=== PATIENT | male | born 1940 | race Caucasian/White ===

== ENCOUNTER → 2016-04-23 12:36 | Outpatient (CLI) | payer MEDICARE, BC ==
[2014-06-25 15:34] VITALS: BMI 21.2
[~2016-04-23 12:36] MED LIST: BETAPACE 120 M120 MG PO; BISACODYL5 MG PO; CLARITIN 10 MG10 MG PO; CYCLOBENZAPRINE10 MG PO; ELIQUIS2.5 MG PO; FOLATE0.4 MG PO; HYDROCODONE-APA1 TAB PO; KLOR-CON 1010 MEQ PO; LASIX20 MG PO; LODOSYN25 MG PO; PERCOCET 10/3251 TA1 PO; PRAVACHOL40 MG PO; PREDNISONE5 MG PO; SINEMET 25-1001 EACH PO; STERAPRED DS 1210 MG PO; SYNTHROID25 MCG PO; THEREMS-M1 TAB PO; VITAMIN B-1000 MCG/M IM; VITAMIN B-121000 MCG IM; VITAMIN D31000 UNIT PO; ZOFRAN4 MG PO; ZOLOFT100 MG PO
== END | disposition home or self-care (01) ==
LOC: D.RAD 12:36
DX: R13.10 Dysphagia, unspecified (principal)

== ENCOUNTER → 2017-09-27 21:22 | Outpatient (CLI) | payer MEDICARE, BC ==
[2014-06-25 15:34] VITALS: BMI 21.2
[2017-09-27 21:37] LABS: BASOPHILS 0.4 % (0-2); HEMATOCRIT 30.8 % (42.0-54.0); HEMOGLOBIN 9.8 g/dL (13.5-17.5); IMMATURE GRANULOCYTES 0.1 % (0-5); LYMPHOCYTES 14.3 % (15-50); MCH 27.7 pg (26.0-34.0); MCHC 31.8 g/dL (31.0-37.0); MEAN PLATELET VOLUME 10.6 fL (7.4-10.4); MONOCYTES 6.4 % (2-11); NEUTROPHILS 77.8 % (40-80); RBC 3.54 10x6/uL (4.20-6.10); RDW 15.4 % (11.5-14.5); WBC 8.3 10x3/uL (4.8-10.8)
[2017-09-27 21:38] LABS: PLATELET COUNT 270 10x3/uL (130-400)
[2017-09-27 22:38] LABS: ERYTHROCYTE SEDIMENTATION RATE 4 mm/hr (0-20)
== END | disposition home or self-care (01) ==
LOC: D.LABREF 21:22
PROVIDERS: Orthopaedic Surgery
DX: M25.562 Pain in left knee (principal)

== ENCOUNTER → 2017-10-01 09:48 | Outpatient (CLI) | payer MEDICARE, BC ==
[2014-06-25 15:34] VITALS: BMI 21.2
== END | disposition home or self-care (01) ==
LOC: D.NM 09:48
DX: Z96.652 Presence of left artificial knee joint (principal)

== ENCOUNTER → 2017-12-01 12:35 | Outpatient (CLI) | payer MEDICARE, BC ==
[2014-06-25 15:34] VITALS: BMI 21.2
== END | disposition home or self-care (01) ==
LOC: D.US 12:35
DX: I12.9 Hypertensive chronic kidney disease with stage 1 through stage 4 chronic kidney disease, or unspecified chronic kidney disease (principal); N18.3 Chronic kidney disease, stage 3 (moderate); N25.81 Secondary hyperparathyroidism of renal origin; D64.9 Anemia, unspecified; Z68.1 Body mass index [BMI] 19.9 or less, adult

== ENCOUNTER 2018-02-15 14:07 | Inpatient (IN) | payer MEDICARE, BC ==
[~2018-02-15] VITALS: Ht 180.3 cm; Wt 80.6 kg
--- NOTE | ~2018-02-15 | MORECARE ---
CASE MANAGEMENT DISCHARGE SUMMARY PATIENT: YA PAULINO UNIT: [id number] ADM DATE: 02/15/18 AGE: 77 : 38 SEX: M ROOM/BED: D.2132 AUTHOR: RACHEL,DOC PHYSICIAN: REFERRING PHYSICIAN: ALBA ROBISON MD DATE OF SERVICE: 02/23/18 Discharge Plan Patient Name: YA PAULINO Facility: [facility]:[place] : 1940 Planned Disposition: Intermediate Facility Anticipated Discharge Date: 02/23/18 Discharge Date: Expected LOS: 8 Initial Reviewer: [id number] Initial Review Date: 02/18/2018 Generated: 02/23/18 2:49 pm Comments DCP- Discharge Planning Updated by [id number]: Zak Gaming on 02/22/18 4:[address] Patient Name: YA PAULINO Encounter No: [id number] : 1940 Primary Insurance: MEDICARE A & B Anticipated DC Date: 02-23-2018 Planned Disposition: Intermediate Facility External Planned Provider: :[facility], MEDICARE REHAB BED DCP follow-up note: CM SPOKE TO [facility] OF INPATIENT REHAB ON 02-21-18, THEY ARE NOT ACCEPTING PT HE IS TOO LOW FUNCTIONING. CM MET WITH PT IN ROOM TO DISCUSS DISCHARGE PLANNING AND NEEDS. PT STATES HE KNOWS HE NEEDS SOMETHING AND WOULD LIKE FOR HIS TO DECIDE ON REHAB. IMPORTANT MESSAGE FROM MEDICARE PROVIDED AND EXPLAINED. AFTER LUNCH, SANJEEV OBSERVED A PERSON IN THE ROOM WITH PT, CM SPOKE PT WHO INFORMED CM THAT MILLY IS HIS CAREGIVER. CM SPOKE TO ALTA WHO REPORT PT NEEDS REHAB BEFORE COMING HOME AND SHE IS PRAYING THAT PT'S SPOUSE WILL NOT BRING PT HOME IN THIS CONDITION AND WILL CONSENT TO REHAB AT [facility], WHICH IS CLOSE TO PT'S HOME. CM LEFT CHOICE LETTER FOR LONGTERM FACILITY IN ROOM WITH PT AFTER EXPLAINING IT TO PT AND CAREGIVER. CM LEFT CM CONTACT INFORMATION. CAREGIVER REPORTS HER NAME IS MILLY AND THAT PT'S IS NOT AVAILABLE TODAY SHE IS HAVING COSMETIC SURGERY AND WILL MOST LIKELY CONTACT CM TOMORROW, 02-23-18. CM WAITING PT'S SPOUSE TO CONTACT CM TO DISCUSS LONGTERM REHAB AND PROVIDE CHOICE OF FACILITY IF SHE WANTS REHAB FOR PT. Zak Gaming, CASE MANAGEMENT DCP- Discharge Planning Updated by [id number]: Zak Gaming on 02/18/18 4:[address] Patient Name: YA PAULINO Admission Status: ER Accout number: [id number] Admission Date: 02-15-2018 : 1940 Admission Diagnosis:LOBAR PNEUMONIA, UNSPECIFIED ORGANISM Attending: ALBA ROBISON Current LOS: 3 Anticipated DC Date: 02-19-2018 Planned Disposition: Inpatient Rehab Primary Insurance: MEDICARE A & B PLANNED EXTERNAL PROVIDER: [facility] IN[facility] RE[facility] Discharge Planning Comments: CM RECEIVED ORDER FOR INPATIENT REHAB PRESCREENING. CM MET WITH PT AND SPOUSE IN ROOM TO DISCUSS DISCHARGE PLANNING AND NEEDS. YA PAULINO provided verbal consent to discuss current and ongoing needs with/in the presence of: SPOUSE, DENYS. PT REPORTS LIVING AT HOME DEPENDENT ON SPOUSE FOR ASSISTANCE IN MEDICATION AND BATH. PT HAS CANE, WALKER AND WHEELCHAIR WITH NO MEDICAL EQUIPMENT PROVIDER PREFERENCE. PT HAS NO OUTSIDE SERVICES ASSISTING IN THE HOME BUT HAS USED [employer] AT HOME IN THE PAST. CM DISCUSSED AVAILABILITY OF HOME HEALTH, REHAB SERVICES AND MEDICAL EQUIPMENT. PT WOULD LIKE REHAB AT [facility], SPOUSE TO TRANSPORT HOME AT DISCHARGE. IMPORTANT MESSAGE FROM MEDICARE PROVIDED AND EXPLAINED. CM WAITING COMPLETION OF INPATIENT REHAB PRESCREENING AND ADMISSION DETERMINATION FROM [facility]. Maintenance Inspector: Zak Gaming DCPIA - Discharge Planning Initial Assessment Updated by [id number]: Zak Gaming on 02/18/18 5:25 pm * Is the patient Alert and Oriented? Yes * How many steps to enter\exit or inside your home? NONE * PCP DR. ROBISON * Pharmacy [facility]. * Preadmission Environment Home with Family * ADLs Partial Dependent * Partial ADLs (Assistance needed) Bathing Medication Management * Equipment Cane Walker Wheelchair * Other Equipment NO MEDICAL EQUIPMENT PROVIDER PREFERENCE * List name and contact numbers for known caregivers / representatives who currently or will assist patient after discharge: DENYS PAULINO, SPOUSE, * Verbal permission to speak to the caregivers and representatives has been obtained from the patient. Yes * Community resources currently utilized None * Please name any agencies selected above. NONE * Additional services required to return to the preadmission environment? Yes * Can the patient safely return to the preadmission environment? Yes * Has this patient been hospitalized within the prior 30 days at any hospital? No External Providers External Provider: [facility] Next Contact Date: 02/23/2018 Service Request Date: Service Type: Resolution: Reviewer: Comments: Coverage Notice Reviewer: [id number] Candi Gaming Notice Issued Date-Time: 02/18/2018 12:10 Notice Type: IM Discharge Notice Notice Delivered To: Family Member Relationship to Patient: Spouse Senior Network Security Architect Name: DENYS PAULINO Delivery Method: HAND - Hand Delivered Berenice Days: Prior Verbal Notification: Recipient Understood Notice: Yes Recipient Signature: Yes Med Rec Note Co-signed by Attending: Coverage Notice Comment: Reviewer: [id number] Candi Gaming Notice Issued Date-Time: 02/22/2018 9:10 Notice Type: IM Discharge Notice Notice Delivered To: Patient Relationship to Patient: Senior Network Security Architect Name: Delivery Method: HAND - Hand Delivered Berenice Days: Prior Verbal Notification: Recipient Understood Notice: Yes Recipient Signature: Yes Med Rec Note Co-signed by Attending: Coverage Notice Comment: Last DP export: 02/23/18 12:14 Patient Name: YA PAULINO Page 33140 at 1349 All edits/amendments must be made on the electronic document DICTATION DATE: 02/23/18 1349 MEDICAL ADMINISTRATIVE: SAUMYA 02/23/18 1349 RPT#: [id number] DC DATE: STATUS: ADM IN [facility] [address] [place] [address] END OF REPORT
--- NOTE | ~2018-02-15 | MORECARE ---
CASE MANAGEMENT DISCHARGE SUMMARY PATIENT: YA PAULINO UNIT: [id number] ADM DATE: 02/15/18 AGE: 77 : 38 SEX: M ROOM/BED: D.2132 AUTHOR: JESSE RAMOS PHYSICIAN: REFERRING PHYSICIAN: ALBA ROBISON MD DATE OF SERVICE: 02/18/18 Discharge Plan Patient Name: YA PAULINO [facility] [facility] 1940 Planned Disposition: Inpatient Rehab Anticipated Discharge Date: 02/19/18 Discharge Date: Expected LOS: 4 Initial Reviewer: [email or web address] Initial Review Date: 02/18/2018 Generated: 02/18/18 6:35 pm Comments DCP- Discharge Planning Updated by AMY: Zak Gaming on 02/18/18 4:[address] Patient Name: YA PAULINO Admission Status: ER Accout number: [id number] Admission Date: 02-15-2018 : 1940 Admission Diagnosis:LOBAR PNEUMONIA, UNSPECIFIED ORGANISM Attending: ALBA ROBISON Current LOS: 3 Anticipated DC Date: 02-19-2018 Planned Disposition: Inpatient Rehab Primary Insurance: MEDICARE A & B PLANNED EXTERNAL PROVIDER: [facility] INPATIENT REH[facility] Discharge Planning Comments: CM RECEIVED ORDER FOR INPATIENT REHAB PRESCREENING. CM MET WITH PT AND SPOUSE IN ROOM TO DISCUSS DISCHARGE PLANNING AND NEEDS. YA PAULINO provided verbal consent to discuss current and ongoing needs with/in the presence of: SPOUSE, DENYS. PT REPORTS LIVING AT HOME DEPENDENT ON SPOUSE FOR ASSISTANCE IN MEDICATION AND BATH. PT HAS CANE, WALKER AND WHEELCHAIR WITH NO MEDICAL EQUIPMENT PROVIDER PREFERENCE. PT HAS NO OUTSIDE SERVICES ASSISTING IN THE HOME BUT HAS USED [facility] AT HOME IN THE PAST. CM DISCUSSED AVAILABILITY OF HOME HEALTH, REHAB SERVICES AND MEDICAL EQUIPMENT. PT WOULD LIKE REHAB AT [facility], SPOUSE TO TRANSPORT HOME AT DISCHARGE. IMPORTANT MESSAGE FROM MEDICARE PROVIDED AND EXPLAINED. CM WAITING COMPLETION OF INPATIENT REHAB PRESCREENING AND ADMISSION DETERMINATION FROM [facility] IN[facility]. Lithographic Photographer Apprentice: Zak Gaming DCPIA - Discharge Planning Initial Assessment Updated by [id number]: Zak Gaming on 02/18/18 5:25 pm * Is the patient Alert and Oriented? Yes * How many steps to enter\exit or inside your home? NONE * PCP DR. ROBISON * [facility]. * Preadmission Environment Home with Family * ADLs Partial Dependent * Partial ADLs (Assistance needed) Bathing Medication Management * Equipment Cane Walker Wheelchair * Other Equipment NO MEDICAL EQUIPMENT PROVIDER PREFERENCE * List name and contact numbers for known caregivers / representatives who currently or will assist patient after discharge: DENYS PAULINO, SPOUSE, * Verbal permission to speak to the caregivers and representatives has been obtained from the patient. Yes * Community resources currently utilized None * Please name any agencies selected above. NONE * Additional services required to return to the preadmission environment? Yes * Can the patient safely return to the preadmission environment? Yes * Has this patient been hospitalized within the prior 30 days at any hospital? No Coverage Notice Reviewer: [id number] Candi Gaming Notice Issued Date-Time: 02/18/2018 12:10 Notice Type: IM Discharge Notice Notice Delivered To: Family Member Relationship to Patient: Spouse Guide Domestic Tour Name: DENYS PAULINO Delivery Method: HAND - Hand Delivered Berenice Days: Prior Verbal Notification: Recipient Understood Notice: Yes Recipient Signature: Yes Med Rec Note Co-signed by Attending: Coverage Notice Comment: Patient Name: YA PAULINO Page 97778 at 1735 All edits/amendments must be made on the electronic document DICTATION DATE: 02/18/181733 PERIPHERAL EQUIPMENT OPERATOR: SAUMYA 02/18/181733 RPT#: [id number] [place] DATE: STATUS: ADM IN [facility] [address] [place] [address] END OF REPORT
--- NOTE | ~2018-02-15 | MORECARE ---
CASE MANAGEMENT DISCHARGE SUMMARY PATIENT: YA PAULINO UNIT: [id number] ADM DATE: 02/15/18 AGE: 77 : 38 SEX: M ROOM/BED: D.2132 AUTHOR: RACHELDOC PHYSICIAN: REFERRING PHYSICIAN: ALBA ROBISON MD DATE OF SERVICE: 02/24/18 Discharge Plan Patient Name: YA PAULINO Facility: [facility]:[place] : 1940 Planned Disposition: Hospice Medical Facility Anticipated Discharge Date: 02/24/18 Discharge Date: Expected LOS: 9 Initial Reviewer: [id number] Initial Review Date: 02/18/2018 Generated: 02/24/18 11:09 am Comments DCP- Discharge Planning Updated by [id number]: Zak Gaming on 02/24/18 9:[address] Patient Name: YA PAULINO Encounter No: [id number] : 1940 Primary Insurance: MEDICARE A & B Anticipated DC Date: 02-23-2018 Planned Disposition: Hospice Medical Facility External Planned Provider: [facility] DCP follow-up note: CM RECEIVED CALL FROM [facility], , WHO INFORMED CM THAT THEY DID NOT EVALUATE PT LAST NIGHT. CM CLARIFIED THAT PT WILL NEED INPATIENT HOSPICE. CM VERFIED THAT PT'S SON IS IN THE ROOM AND PT'S SPOUSE IS NOT YET HERE BUT CAN BE AND ADVISED TANIA TO CONTACT PT'S SPOUSE VIA PHONE IF NEEDED. CM NOTIFIED TANIA OF PT'S CONTINUED DECLINE. CM FAXED HOSPICE REFERRAL UPDATE TO [facility] AT [phone]. CM WAITING EVALUATION COMPLETION AND ADMISSION DETERMINATION FROM [facility]. Zak Gaming, CASE MANAGEMENT Appended by Zak Gaming on 02/24/2018 10:05 HEAD BOYS TENNIS COACH: BEDSIDE NURSE INFORMED CM THAT PT HAD . CM CALLED AND NOTIFIED [facility], . JOANN LEBRON DCP- Discharge Planning Updated by [id number]: Zak Gaming on 02/23/18 3:[address] Patient Name: YA PAULINO Encounter No: [id number] : 1940 Primary Insurance: MEDICARE A & B Anticipated DC Date: 02-23-2018 Planned Disposition: Hospice Medical Facility External Planned Provider: [facility] DCP follow-up note: CM SPOKE TO BEDSIDE NURSE WHO INFORMED CM OF PT'S DECLINE IN STATUS, DR. WALLACE HAS ORDERED CONSULT FOR HOSPICE, BEDSIDE NURSE HAS DISCUSSED WITH PT'S SPOUSE WHO IS IN AGREEMENT WITH REFERRAL TO [facility]. CM CALLED [facility], , SPOKE TO SUSAN AND PROVIDED REFERRAL FOR HOSPICE EVALUATON. CM FAXED HOSPICE REFERRAL TO [facility] AT [phone]. CM WAITING EVALUATION COMPLETION AND ADMISSION DETERMINATION FROM [facility]. Zak Gaming, CASE MANAGEMENT DCP- Discharge Planning Updated by [id number]: Zak Gaming on 02/23/18 12:[address] Patient Name: YA PAULINO Encounter No: [id number] : 1940 Primary Insurance: MEDICARE A & B Anticipated DC Date: 02-23-2018 Planned Disposition: Detention Facility External Planned Provider: [facility], MEDICARE REHAB BED DCP follow-up note: CM RECEIVED CALL FROM DENYS PAULINO WHO REPORTS BEING UNALBE TO COME TO HOSPITAL DUE TO HAVING A PROCEDURE HERSELF YESTERDAY. SHE HAD RECEIVED MESSAGE FROM MILLY, PT'S CAREGIVER, REGARDING REHAB. OPTIONS DISCUSSED. SPOUSE REPORTS THAT IF PT IS ABLE TO GO REHAB, SHE WOULD LIKE REFERRAL SENT TO [facility]. CHOICE COMPLETED. SPOUSE STATES THAT IF PT IS NOT ABLE AND THE DOCTOR FEELS THEY CAN DO NOTHING FURTHER, SHE WOULD WANT [facility] AND IF PT DID NOT QUALIFY FOR INPATIENT HOSPICE, SHE WOULD LIKE PT PLACED AT [facility] WITH [facility]. SPOUSE ASKED IF THE DOCTORS HAVE MENTIONED HOSPICE CARE. CM REVIEWED NOTES AND ORDERS, CM ADVISED THEY HAVE NOT BUT ADVISED PT IS DOING WORSE TODAY. SPOUSE ASKED TO BE KEPT UPDATED ON PT'S CONDITION AND ASKED THAT CM CONTACT [facility] FOR POSSIBLE REHAB IN EVENT PT DOES GET BETTER. CM NOTIFIED [facility] OF REFERRAL AT [phone]; [facility] FAXED REFERRAL TO [facility] VIA [facility] AT [phone]. [facility] ARRIVED, EVALUATED PT AND INFORMED CM THAT PT IS ON 15 LITERS OF OXYGEN AND WOULD HAVE TO BE DOING "MUCH BETTER THAN THAT" FOR REHAB. [facility] TO FOLLOW FOR POSSIBLE IMPROVEMENT AND REHAB NEEDS, CM TO KEEP INFORMED OF STATUS. SPOUSE, DENYS PAULINO, ASKED TO BE UPDATED ON PT'S CONDITION, HER PHONE IS [phone]. JOANN Lebron DCP- Discharge Planning Updated by [id number]: Zak Gaming on 02/22/18 4:[address] Patient Name: YA PAULINO Encounter No: [id number] : 1940 Primary Insurance: MEDICARE A & B Anticipated DC Date: 02-23-2018 Planned Disposition: Detention Facility External Planned Provider: :[facility], MEDICARE REHAB BED DCP follow-up note: CM SPOKE TO [facility] OF INPATIENT REHAB ON 02-21-18, THEY ARE NOT ACCEPTING PT HE IS TOO LOW FUNCTIONING. CM MET WITH PT IN ROOM TO DISCUSS DISCHARGE PLANNING AND NEEDS. PT STATES HE KNOWS HE NEEDS SOMETHING AND WOULD LIKE FOR HIS TO DECIDE ON REHAB. IMPORTANT MESSAGE FROM MEDICARE PROVIDED AND EXPLAINED. AFTER LUNCH, CM OBSERVED A PERSON IN THE ROOM WITH PT, CM SPOKE PT WHO INFORMED CM THAT MILLY IS HIS CAREGIVER. CM SPOKE TO ALTA WHO REPORT PT NEEDS REHAB BEFORE COMING HOME AND SHE IS PRAYING THAT PT'S SPOUSE WILL NOT BRING PT HOME IN THIS CONDITION AND WILL CONSENT TO REHAB AT [facility], WHICH IS CLOSE TO PT'S HOME. CM LEFT CHOICE LETTER FOR [facility] IN ROOM WITH PT AFTER EXPLAINING IT TO PT AND CAREGIVER. CM LEFT CM CONTACT INFORMATION. CAREGIVER REPORTS HER NAME IS MILLY AND THAT PT'S IS NOT AVAILABLE TODAY SHE IS HAVING COSMETIC SURGERY AND WILL MOST LIKELY CONTACT CM TOMORROW, 02-23-18. CM WAITING PT'S SPOUSE TO CONTACT CM TO DISCUSS [facility] AND PROVIDE CHOICE OF FACILITY IF SHE WANTS REHAB FOR PT. JOANN Lebron DCP- Discharge Planning Updated by [id number]: Zak Gaming on 02/18/18 4:[address] Patient Name: YA PAULINO Admission Status: ER Accout number: [id number] Admission Date: 02-15-2018 : 1940 Admission Diagnosis:LOBAR PNEUMONIA, UNSPECIFIED ORGANISM Attending: ALBA ROBISON Current LOS: 3 Anticipated DC Date: 02-19-2018 Planned Disposition: Inpatient Rehab Primary Insurance: MEDICARE A & B PLANNED EXTERNAL PROVIDER: [facility] Discharge Planning Comments: CM RECEIVED ORDER FOR INPATIENT REHAB PRESCREENING. CM MET WITH PT AND SPOUSE IN ROOM TO DISCUSS DISCHARGE PLANNING AND NEEDS. YA PAULINO provided verbal consent to discuss current and ongoing needs with/in the presence of: SPOUSE, DENYS. PT REPORTS LIVING AT HOME DEPENDENT ON SPOUSE FOR ASSISTANCE IN MEDICATION AND BATH. PT HAS CANE, WALKER AND WHEELCHAIR WITH NO MEDICAL EQUIPMENT PROVIDER PREFERENCE. PT HAS NO OUTSIDE SERVICES ASSISTING IN THE HOME BUT HAS USED [facility] AT HOME IN THE PAST. CM DISCUSSED AVAILABILITY OF HOME HEALTH, REHAB SERVICES AND MEDICAL EQUIPMENT. PT WOULD LIKE REHAB AT [place], SPOUSE TO TRANSPORT HOME AT DISCHARGE. IMPORTANT MESSAGE FROM MEDICARE PROVIDED AND EXPLAINED. CM WAITING COMPLETION OF INPATIENT REHAB PRESCREENING AND ADMISSION DETERMINATION FROM [facility]. Electronic Gluing Machine Operator: Zak Gaming DCPIA - Discharge Planning Initial Assessment Updated by [id number]: Zak Gaming on 02/18/18 5:25 pm * Is the patient Alert and Oriented? Yes * How many steps to enter\\exit or inside your home? NONE * PCP DR. ROBISON * Pharmacy [facility]. * Preadmission Environment Home with Family * ADLs Partial Dependent * Partial ADLs (Assistance needed) Bathing Medication Management * Equipment Cane Walker Wheelchair * Other Equipment NO MEDICAL EQUIPMENT PROVIDER PREFERENCE * List name and contact numbers for known caregivers / representatives who currently or will assist patient after discharge: DENYS PAULINO, SPOUSE, * Verbal permission to speak to the caregivers and representatives has been obtained from the patient. Yes * Community resources currently utilized None * Please name any agencies selected above. NONE * Additional services required to return to the preadmission environment? Yes * Can the patient safely return to the preadmission environment? Yes * Has this patient been hospitalized within the prior 30 days at any hospital? No Coverage Notice Reviewer: [id number] Candi Gaming Notice Issued Date-Time: 02/18/2018 12:10 Notice Type: IM Discharge Notice Notice Delivered To: Family Member Relationship to Patient: Spouse Enrichment Specialist Name: DENYS PAULINO Delivery Method: HAND - Hand Delivered Berenice Days: Prior Verbal Notification: Recipient Understood Notice: Yes Recipient Signature: Yes Med Rec Note Co-signed by Attending: Coverage Notice Comment: Reviewer: [id number] Gaming Notice Issued Date-Time: 02/22/2018 9:10 Notice Type: IM Discharge Notice Notice Delivered To: Patient Relationship to Patient: Enrichment Specialist Name: Delivery Method: HAND - Hand Delivered Berenice Days: Prior Verbal Notification: Recipient Understood Notice: Yes Recipient Signature: Yes Med Rec Note Co-signed by Attending: Coverage Notice Comment: Reviewer: [id number] Gaming Notice Issued Date-Time: 02/23/2018 9:20 Notice Type: Patient Choice Letter Notice Delivered To: Family Member Relationship to Patient: Spouse Enrichment Specialist Name: DENYS PAULINO Delivery Method: PHONE - Phone Berenice Days: Prior Verbal Notification: Recipient Understood Notice: Yes Recipient Signature: Med Rec Note Co-signed by Attending: Coverage Notice Comment: THE JENNI Riggins DP export: 02/24/18 7:47 Patient Name: YA PAULINO Page 30242 at 1009 All edits/amendments must be made on the electronic document DICTATION DATE: 02/24/18 1009 CHIEF DATA OFFICER: SAUMYA 02/24/18 1009 RPT#: [id number] DC DATE: STATUS: ADM IN [facility] [address] [place] [address] END OF REPORT
--- NOTE | ~2018-02-15 | CN ---
PATIENT NAME:YA KOCH MEDICAL RECORD: [id number] : [birth year] LOCATION:[facility].2132 ADMIT DATE: 02/15/18 ACCOUNT: [id number] CONSULTING PHYSICIAN: YOLANDA MCADAMS MD REFERRING PHYSICIAN: KEMAL BURRIS MD DATE OF CONSULTATION: 02/16/2018 CONSULT REQUESTING PHYSICIAN: Kemal Burris MD REASON FOR CONSULTATION: Right upper lobe pneumonia, COPD. HISTORY OF PRESENT ILLNESS: Mr. Koch is a 77-year-old gentleman who has a history of Parkinson disease, obstructive sleep apnea, noncompliant and COPD, home O2 dependent. The patient was brought into the hospital with shortness of breath. He has generalized weakness and fatigue and a bit more confused. He was also losing weight and he has inability to eat for the last 4-5 days. REVIEW OF SYSTEMS: As in history of present illness. PAST MEDICAL HISTORY: 1. End-stage Parkinson disease. 2. Hypothyroidism. 3. COPD. 4. Chronic hypoxic respiratory failure. 5. Obstructive sleep apnea. 6. Arthritis. PAST SURGICAL HISTORY: 1. Appendectomy. 2. Vasectomy. 3. Shoulder surgery. 4. Elbow surgery. 5. Testicular tumor, left. 6. Total ulnar nerve transplantation. 7. Lumber laminectomy. 8. Status post pacemaker placement. ALLERGIES: HE IS ALLERGIC TO DOXYCYCLINE, CIPRO, LEVOFLOXACIN, THERE IS A HUGE LIST ON THE [place]. MEDICATIONS: On the Mendeley is reviewed. Medication on Mendeley is reviewed. PERSONAL AND SOCIAL HISTORY: The patient is a nonsmoker, nondrinker. FAMILY HISTORY: Noncontributory. PHYSICAL EXAMINATION: GENERAL: Now, the patient is lying comfortably. He is not in acute distress. VITAL SIGNS: The blood pressure is 136/68, pulse is 72, respirations 20, temperature is 96.4, and SpO2 is 95% on room air. HEENT: Conjunctivae are pale. Sclerae not icteric. NECK: Supple, no JVD. CHEST: The chest excursion is minimal on both, crackle at the right apex. CONSULT REPORT [id number] YA KOCH HEART: Rhythm regular, normal sound, no murmur. ABDOMEN: Soft, bowel sounds present. No hepatosplenomegaly. RECTAL: Was done. CENTRAL NERVOUS SYSTEM: The patient is awake and alert. There are no obvious cranial nerve abnormality. There are increased muscular tone. Chest radiograph there is infiltrate in right upper lobe. There is 1.2 x 1 cm lesion abutting the meninges posterior to the right cerebellar hemisphere. OTHER LABORATORY DATA: CBC: WBC is 9.4, hemoglobin 13.1, hematocrit 39.7, the platelet count 254. IMPRESSION: 1. Pneumonia, right upper lobe. 2. Possible chronic aspiration. 3. End-stage Parkinson disease. 4. Acute myocardial infarction. 5. Obstructive sleep apnea. 6. Paroxysmal atrial fibrillation. 7. Chronic kidney disease. RECOMMENDATION: 1. I will start him on Zosyn to cover for aspiration pneumonia. 2. Encourage nutrition. 3. Swallowing evaluation is in progress. 4. Follow up labs and chest radiograph. 5. Cardiology and nephrology is consulted. Dr. Burris, thank you for involving me in the care of Mr. Koch. TRANSINT:[id number] Voice Confirmation ID: [id number] DOCUMENT ID: [id number] YOLANDA MCADAMS MD at 1339 CC: [id number] DICTATION DATE: 02/16/18 1446 LINUX SERVER ADMINISTRATOR: 02/16/18 2211 ADM IN [facility] [address] [place] [address]
--- NOTE | ~2018-02-15 | MORECARE ---
CASE MANAGEMENT DISCHARGE SUMMARY PATIENT: YA PAULINO UNIT: [id number] ADM DATE: 02/15/18 AGE: 77 : 38 SEX: M ROOM/BED: D.2132 AUTHOR: RACHEL,DOC PHYSICIAN: REFERRING PHYSICIAN: ALBA ROBISON MD DATE OF SERVICE: 02/23/18 Discharge Plan Patient Name: YA PAULINO Facility: [facility]:[place] : 1940 Planned Disposition: Hospice Medical Facility Anticipated Discharge Date: 02/23/18 Discharge Date: Expected LOS: 8 Initial Reviewer: [id number] Initial Review Date: 02/18/2018 Generated: 02/23/18 5:13 pm Comments DCP- Discharge Planning Updated by [email or web address]: Zak Gaming on 02/23/18 12:[address] Patient Name: YA PAULINO Encounter No: [id number] : 1940 Primary Insurance: MEDICARE A & B Anticipated DC Date: 02-23-2018 Planned Disposition: Prison Facility External Planned Provider: [facility], MEDICARE REHAB BED DCP follow-up note: CM RECEIVED CALL FROM DENYS PAULINO WHO REPORTS BEING UNALBE TO COME TO HOSPITAL DUE TO HAVING A PROCEDURE HERSELF YESTERDAY. SHE HAD RECEIVED MESSAGE FROM MILLY, PT'S CAREGIVER, REGARDING REHAB. OPTIONS DISCUSSED. SPOUSE REPORTS THAT IF PT IS ABLE TO GO REHAB, SHE WOULD LIKE REFERRAL SENT TO [facility]. CHOICE COMPLETED. SPOUSE STATES THAT IF PT IS NOT ABLE AND THE DOCTOR FEELS THEY CAN DO NOTHING FURTHER, SHE WOULD WANT [facility] AND IF PT DID NOT QUALIFY FOR INPATIENT HOSPICE, SHE WOULD LIKE PT PLACED AT [facility] WITH [facility]. SPOUSE ASKED IF THE DOCTORS HAVE MENTIONED HOSPICE CARE. CM REVIEWED NOTES AND ORDERS, CM ADVISED THEY HAVE NOT BUT ADVISED PT IS DOING WORSE TODAY. SPOUSE ASKED TO BE KEPT UPDATED ON PT'S CONDITION AND ASKED THAT CM CONTACT [facility] FOR POSSIBLE REHAB IN EVENT PT DOES GET BETTER. CM NOTIFIED [facility] OF REFERRAL AT [phone]; [facility] FAXED REFERRAL TO [facility] VIA [facility] AT [phone]. [facility] ARRIVED, EVALUATED PT AND INFORMED CM THAT PT IS ON 15 LITERS OF OXYGEN AND WOULD HAVE TO BE DOING "MUCH BETTER THAN THAT" FOR REHAB. [facility] TO FOLLOW FOR POSSIBLE IMPROVEMENT AND REHAB NEEDS, CM TO KEEP INFORMED OF STATUS. SPOUSE, DENYS PAULINO, ASKED TO BE UPDATED ON PT'S CONDITION, HER PHONE IS [phone]. JOANN Leal MANAGEMENT DCP- Discharge Planning Updated by [id number]: Zak Gaming on 02/22/18 4:[address] Patient Name: YA PAULINO Encounter No: [id number] : 1940 Primary Insurance: MEDICARE A & B Anticipated DC Date: 02-23-2018 Planned Disposition: Prison Facility External Planned Provider: :[facility], MEDICARE REHAB BED DCP follow-up note: CM SPOKE TO [facility]PAT[facility] ON 02-21-18, THEY ARE NOT ACCEPTING PT HE IS TOO LOW FUNCTIONING. CM MET WITH PT IN ROOM TO DISCUSS DISCHARGE PLANNING AND NEEDS. PT STATES HE KNOWS HE NEEDS SOMETHING AND WOULD LIKE FOR HIS TO DECIDE ON REHAB. IMPORTANT MESSAGE FROM MEDICARE PROVIDED AND EXPLAINED. AFTER LUNCH, CM OBSERVED A PERSON IN THE ROOM WITH PT, CM SPOKE PT WHO INFORMED CM THAT MILLY IS HIS CAREGIVER. CM SPOKE TO ALTA WHO REPORT PT NEEDS REHAB BEFORE COMING HOME AND SHE IS PRAYING THAT PT'S SPOUSE WILL NOT BRING PT HOME IN THIS CONDITION AND WILL CONSENT TO REHAB AT [facility], WHICH IS CLOSE TO PT'S HOME. CM LEFT CHOICE LETTER FOR [facility] IN ROOM WITH PT AFTER EXPLAINING IT TO PT AND CAREGIVER. CM LEFT CM CONTACT INFORMATION. CAREGIVER REPORTS HER NAME IS MILLY AND THAT PT'S IS NOT AVAILABLE TODAY SHE IS HAVING COSMETIC SURGERY AND WILL MOST LIKELY CONTACT CM TOMORROW, 02-23-18. CM WAITING PT'S SPOUSE TO CONTACT CM TO DISCUSS [facility] AND PROVIDE CHOICE OF FACILITY IF SHE WANTS REHAB FOR PT. JOANN Leal MANAGEMENT DCP- Discharge Planning Updated by [email or web address]: Zak Gaming on 02/18/18 4:[address] Patient Name: YA PAULINO Admission Status: ER Accout number: [id number] Admission Date: 02-15-2018 : 1940 Admission Diagnosis:LOBAR PNEUMONIA, UNSPECIFIED ORGANISM Attending: ALBA ROBISON Current LOS: 3 Anticipated DC Date: 02-19-2018 Planned Disposition: Inpatient Rehab Primary Insurance: MEDICARE A & B PLANNED EXTERNAL PROVIDER: [facility] Discharge Planning Comments: CM RECEIVED ORDER FOR INPATIENT REHAB PRESCREENING. CM MET WITH PT AND SPOUSE IN ROOM TO DISCUSS DISCHARGE PLANNING AND NEEDS. YA PAULINO provided verbal consent to discuss current and ongoing needs with/in the presence of: SPOUSE, DENYS. PT REPORTS LIVING AT HOME DEPENDENT ON SPOUSE FOR ASSISTANCE IN MEDICATION AND BATH. PT HAS CANE, WALKER AND WHEELCHAIR WITH NO MEDICAL EQUIPMENT PROVIDER PREFERENCE. PT HAS NO OUTSIDE SERVICES ASSISTING IN THE HOME BUT HAS USED [facility] AT HOME IN THE PAST. CM DISCUSSED AVAILABILITY OF HOME HEALTH, REHAB SERVICES AND MEDICAL EQUIPMENT. PT WOULD LIKE REHAB AT [place], SPOUSE TO TRANSPORT HOME AT DISCHARGE. IMPORTANT MESSAGE FROM MEDICARE PROVIDED AND EXPLAINED. CM WAITING COMPLETION OF INPATIENT REHAB PRESCREENING AND ADMISSION DETERMINATION FROM [facility]. Organization Development Consultant: Zak Gaming DCPIA - Discharge Planning Initial Assessment Updated by [id number]: Zak Gaming on 02/18/18 5:25 pm * Is the patient Alert and Oriented? Yes * How many steps to enter\\exit or inside your home? NONE * PCP DR. ROBISON * Pharmacy [facility] ON [facility]. * Preadmission Environment Home with Family * ADLs Partial Dependent * Partial ADLs (Assistance needed) Bathing Medication Management * Equipment Cane Walker Wheelchair * Other Equipment NO MEDICAL EQUIPMENT PROVIDER PREFERENCE * List name and contact numbers for known caregivers / representatives who currently or will assist patient after discharge: DENYS PAULINO, SPOUSE, * Verbal permission to speak to the caregivers and representatives has been obtained from the patient. Yes * Community resources currently utilized None * Please name any agencies selected above. NONE * Additional services required to return to the preadmission environment? Yes * Can the patient safely return to the preadmission environment? Yes * Has this patient been hospitalized within the prior 30 days at any hospital? No External Providers External Provider: [facility]ides [facility] Next Contact Date: 02/23/2018 Service Request Date: Service Type: Resolution: Reviewer: Comments: Coverage Notice Reviewer: [id number] - Zak Gaming Notice Issued Date-Time: 02/18/2018 12:10 Notice Type: IM Discharge Notice Notice Delivered To: Family Member Relationship to Patient: Spouse Private Branch Exchange Installer Name: DENYS PAULINO Delivery Method: HAND - Hand Delivered Berenice Days: Prior Verbal Notification: Recipient Understood Notice: Yes Recipient Signature: Yes Med Rec Note Co-signed by Attending: Coverage Notice Comment: Reviewer: AMY Gaming Notice Issued Date-Time: 02/22/2018 9:10 Notice Type: IM Discharge Notice Notice Delivered To: Patient Relationship to Patient: Private Branch Exchange Installer Name: Delivery Method: HAND - Hand Delivered Berenice Days: Prior Verbal Notification: Recipient Understood Notice: Yes Recipient Signature: Yes Med Rec Note Co-signed by Attending: Coverage Notice Comment: Reviewer: [email or web address] Gaming Notice Issued Date-Time: 02/23/2018 9:20 Notice Type: Patient Choice Letter Notice Delivered To: Family Member Relationship to Patient: Spouse Private Branch Exchange Installer Name: DENYS PAULINO Delivery Method: PHONE - Phone Berenice Days: Prior Verbal Notification: Recipient Understood Notice: Yes Recipient Signature: Med Rec Note Co-signed by Attending: Coverage Notice Comment: MARTINEZ SANZ export: 02/23/18 12:57 Patient Name: YA PAULINO Page [phone] at 1614 All edits/amendments must be made on the electronic document DICTATION DATE: 02/23/181612 TECHNICAL PROJECT COORDINATOR: SAUMYA 02/23/181612 RPT#: [id number] DC DATE: STATUS: ADM IN [facility] [address] [place] [address] END OF REPORT
--- NOTE | ~2018-02-15 | MORECARE ---
CASE MANAGEMENT DISCHARGE SUMMARY PATIENT: YA PAULINO UNIT: [id number] ADM DATE: 02/15/18 AGE: 77 : 38 SEX: M ROOM/BED: D.2132 AUTHOR: JESSE RAMOS PHYSICIAN: REFERRING PHYSICIAN: ALBA ROBISON MD DATE OF SERVICE: 02/22/18 Discharge Plan Patient Name: YA PAULINO [facility] [facility] 1940 Planned Disposition: [facility] Anticipated Discharge Date: 02/23/18 Discharge Date: Expected LOS: 8 Initial Reviewer: [email or web address] Initial Review Date: 02/18/2018 Generated: 02/22/18 6:42 pm Comments DCP- Discharge Planning Updated by [id number]: Zak Gaming on 02/18/18 4:[address] Patient Name: YA PAULINO Admission Status: ER Accout number: [id number] Admission Date: 02-15-2018 : 1940 Admission Diagnosis:LOBAR PNEUMONIA, UNSPECIFIED ORGANISM Attending: ALBA ROBISON Current LOS: 3 Anticipated DC Date: 02-19-2018 Planned Disposition: Inpatient Rehab Primary Insurance: MEDICARE A & B PLANNED EXTERNAL PROVIDER: [facility] Discharge Planning Comments: CM RECEIVED ORDER FOR INPATIENT REHAB PRESCREENING. CM MET WITH PT AND SPOUSE IN ROOM TO DISCUSS DISCHARGE PLANNING AND NEEDS. YA PAULINO provided verbal consent to discuss current and ongoing needs with/in the presence of: SPOUSE, DENYS. PT REPORTS LIVING AT HOME DEPENDENT ON SPOUSE FOR ASSISTANCE IN MEDICATION AND BATH. PT HAS CANE, WALKER AND WHEELCHAIR WITH NO MEDICAL EQUIPMENT PROVIDER PREFERENCE. PT HAS NO OUTSIDE SERVICES ASSISTING IN THE HOME BUT HAS USED [facility] IN THE PAST. CM DISCUSSED AVAILABILITY OF HOME HEALTH, REHAB SERVICES AND MEDICAL EQUIPMENT. PT WOULD LIKE REHAB AT [place], SPOUSE TO TRANSPORT HOME AT DISCHARGE. IMPORTANT MESSAGE FROM MEDICARE PROVIDED AND EXPLAINED. CM WAITING COMPLETION OF INPATIENT REHAB PRESCREENING AND ADMISSION DETERMINATION FROM [facility]. Heavy Media Operator: Zak Gaming DCPIA - Discharge Planning Initial Assessment Updated by [id number]: Zak Gaming on 02/18/18 5:25 pm * Is the patient Alert and Oriented? Yes * How many steps to enter\exit or inside your home? NONE * PCP DR. ROBISON * [facility]. * Preadmission Environment Home with Family * ADLs Partial Dependent * Partial ADLs (Assistance needed) Bathing Medication Management * Equipment Cane Walker Wheelchair * Other Equipment NO MEDICAL EQUIPMENT PROVIDER PREFERENCE * List name and contact numbers for known caregivers / representatives who currently or will assist patient after discharge: DENYS PAULINO, SPOUSE, * Verbal permission to speak to the caregivers and representatives has been obtained from the patient. Yes * Community resources currently utilized None * Please name any agencies selected above. NONE * Additional services required to return to the preadmission environment? Yes * Can the patient safely return to the preadmission environment? Yes * Has this patient been hospitalized within the prior 30 days at any hospital? No External Providers External Provider: [facility] Next Contact Date: 02/23/2018 Service Request Date: Service Type: Resolution: Reviewer: Comments: Coverage Notice Reviewer: [id number] Candi Gaming Notice Issued Date-Time: 02/18/2018 12:10 Notice Type: IM Discharge Notice Notice Delivered To: Family Member Relationship to Patient: Spouse Solar Pool Heating Installer Name: DENYS PAULINO Delivery Method: HAND - Hand Delivered Berenice Days: Prior Verbal Notification: Recipient Understood Notice: Yes Recipient Signature: Yes Med Rec Note Co-signed by Attending: Coverage Notice Comment: Reviewer: AMY Gaming Notice Issued Date-Time: 02/22/2018 9:10 Notice Type: IM Discharge Notice Notice Delivered To: Patient Relationship to Patient: Solar Pool Heating Installer Name: Delivery Method: HAND - Hand Delivered Berenice Days: Prior Verbal Notification: Recipient Understood Notice: Yes Recipient Signature: Yes Med Rec Note Co-signed by Attending: Coverage Notice Comment: Last DP export: 02/18/18 4:35 Patient Name: YA PAULINO Page [phone] at 1742 All edits/amendments must be made on the electronic document DICTATION DATE: 02/22/181741 ROADABILITY MACHINE OPERATOR: SAUMYA 02/22/181741 RPT#: [id number] DC DATE: STATUS: ADM IN [facility] [address] [place] [address] END OF REPORT
--- NOTE | ~2018-02-15 | EC ---
PATIENT:YA PAULINO DATE OF SERVICE: 02/15/18 SEX: M MEDICAL RECORD: [id number] DATE OF : [birth year] LOCATION:D.M2 D.213 AGE OF PATIENT: 77 ADMISSION DATE: 02/15/18 REFERRING PHYSICIAN: INTERPRETING PHYSICIAN: NATACHA QUEEN MD ECHOCARDIOGRAM REPORT ECHO CHARGES 4 ECHO COMPLETE Date: 02/16/18 CLINICAL DIAGNOSIS: ECHOCARDIOGRAPHIC MEASUREMENTS (adult normal given) AC root (d.<3.7cm) 3.9 cm LV Septum d (<1.2 cm> 1.6 cm Valve Excursion 1.0 cm LV Septum (systole) 2.0 cm Left Atria (s.<4.0cm> 4.0 cm LVPW d(<1.2cm) 1.4 cm RV (d.<2.3cm) 3.0 cm LVPW (sytole) 2.0 cm LV diastole(<5.6CM) 6.5 cm MV E-F(>70mm/sec) cm LV systole 4.4 cm LVOT Diameter 2.1 cm MV exc.(>10mm) cm Est.ejection fraction (50-75%) % DOPPLER: LVIT cm/sec A 45.0 cm/sec E 120 cm/sec LA cm/sec RVSP 78.0 mmHg LVOT 159 cm/sec AOP1/2T 312 m/s Asc. Ao 360 cm/sec RVOT 53.0 cm/sec RA cm/sec PA 68.0 cm/sec AV Gradient Peak 52.0 mmHg AV Mean 24.3 mmHg AV Area 1.5 cm MV Gradient Peak 15.0 mmHg MV Mean 5.3 mmHg MV Area cm COMMENTS: Solution Director: Susana ROSENTHALOE Warp Tension Tester: 1 Dr. Queen TAPE# PACS Pericardial Effusion N DATE OF SERVICE: 02/16/2018 FINDINGS: 1. Left ventricular chamber size is within normal limits. Left ventricular systolic function is preserved. Overall ejection fraction estimated at 50%. 2. Left atrium is upper limits of normal at 4.0 cm. Right atrium and right ventricular chamber sizes are moderately dilated. 3. Valvular structures: Aortic valve demonstrates moderate calcific aortic stenosis. Valve area calculates 1.5 cm-squared with a gradient of 52 mm across the valve. The remaining valvular structures have normal structure and motion. ECHOCARDIOGRAM REPORT [id number] YA PAULINO 4. Doppler interrogation elsewise reveals xnohaftb-pj-hvnxbv mitral regurgitation, kmiawiig-og-npxswn tricuspid regurgitation. No other valvular insufficiency or stenosis. Pulmonary systolic pressure is elevated, estimated at 78 mmHg. 5. No evidence of pericardial effusion or left ventricular thrombus. TRANSINT:[id number] Voice Confirmation ID: [id number] DOCUMENT ID: [id number] NATACHA QUEEN MD at 1228 CC: [id number] DICTATION DATE: 02/16/18 1220 UTILITY PORTER: 02/16/18 1456 ADM IN [facility] [address] [place] [id number]
--- NOTE | ~2018-02-15 | MORECARE ---
CASE MANAGEMENT DISCHARGE SUMMARY PATIENT: YA PAULINO UNIT: [id number] ADM DATE: 02/15/18 AGE: 77 : 38 SEX: M ROOM/BED: D.2132 AUTHOR: RACHEL,DOC PHYSICIAN: REFERRING PHYSICIAN: ALBA ROBISON MD DATE OF SERVICE: 02/22/18 Discharge Plan Patient Name: YA PAULINO Facility: [facility]:[place] : 1940 Planned Disposition: Mcfp Facility Anticipated Discharge Date: 02/23/18 Discharge Date: Expected LOS: 8 Initial Reviewer: [id number] Initial Review Date: 02/18/2018 Generated: 02/22/18 6:59 pm Comments DCP- Discharge Planning Updated by [email or web address]: Zak Gaming on 02/22/18 4:[address] Patient Name: YA PAULINO Encounter No: [id number] : 1940 Primary Insurance: MEDICARE A & B Anticipated DC Date: 02-23-2018 Planned Disposition: Mcfp Facility External Planned Provider: :[facility], MEDICARE REHAB BED DCP follow-up note: CM SPOKE TO [facility] OF INPATIENT REH[facility] ON 02-21-18, THEY ARE NOT ACCEPTING PT HE IS TOO LOW FUNCTIONING. CM MET WITH PT IN ROOM TO DISCUSS DISCHARGE PLANNING AND NEEDS. PT STATES HE KNOWS HE NEEDS SOMETHING AND WOULD LIKE FOR HIS TO DECIDE ON REHAB. IMPORTANT MESSAGE FROM MEDICARE PROVIDED AND EXPLAINED. AFTER LUNCH, SANJEEV OBSERVED A PERSON IN THE ROOM WITH PT, CM SPOKE PT WHO INFORMED CM THAT MILLY IS HIS CAREGIVER. CM SPOKE TO ALTA WHO REPORT PT NEEDS REHAB BEFORE COMING HOME AND SHE IS PRAYING THAT PT'S SPOUSE WILL NOT BRING PT HOME IN THIS CONDITION AND WILL CONSENT TO REHAB AT [facility], WHICH IS CLOSE TO PT'S HOME. CM LEFT CHOICE LETTER FOR INTERMEDIATE FACILITY IN ROOM WITH PT AFTER EXPLAINING IT TO PT AND CAREGIVER. CM LEFT CM CONTACT INFORMATION. CAREGIVER REPORTS HER NAME IS MILLY AND THAT PT'S IS NOT AVAILABLE TODAY SHE IS HAVING COSMETIC SURGERY AND WILL MOST LIKELY CONTACT CM TOMORROW, 02-23-18. CM WAITING PT'S SPOUSE TO CONTACT CM TO DISCUSS INTERMEDIATE REHAB AND PROVIDE CHOICE OF FACILITY IF SHE WANTS REHAB FOR PT. Zak Gaming, CASE MANAGEMENT DCP- Discharge Planning Updated by [id number]: Zak Gaming on 02/18/18 4:[address] Patient Name: YA PAULINO Admission Status: ER Accout number: [id number] Admission Date: 02-15-2018 : 1940 Admission Diagnosis:LOBAR PNEUMONIA, UNSPECIFIED ORGANISM Attending: ALBA ROBISON Current LOS: 3 Anticipated DC Date: 02-19-2018 Planned Disposition: Inpatient Rehab Primary Insurance: MEDICARE A & B PLANNED EXTERNAL PROVIDER: [facility] INPATIENT REH[facility] Discharge Planning Comments: CM RECEIVED ORDER FOR INPATIENT REHAB PRESCREENING. CM MET WITH PT AND SPOUSE IN ROOM TO DISCUSS DISCHARGE PLANNING AND NEEDS. YA PAULINO provided verbal consent to discuss current and ongoing needs with/in the presence of: SPOUSE, DENYS. PT REPORTS LIVING AT HOME DEPENDENT ON SPOUSE FOR ASSISTANCE IN MEDICATION AND BATH. PT HAS CANE, WALKER AND WHEELCHAIR WITH NO MEDICAL EQUIPMENT PROVIDER PREFERENCE. PT HAS NO OUTSIDE SERVICES ASSISTING IN THE HOME BUT HAS USED [employer] [employer] AT HOME IN THE PAST. CM DISCUSSED AVAILABILITY OF HOME HEALTH, REHAB SERVICES AND MEDICAL EQUIPMENT. PT WOULD LIKE REHAB AT [place], SPOUSE TO TRANSPORT HOME AT DISCHARGE. IMPORTANT MESSAGE FROM MEDICARE PROVIDED AND EXPLAINED. CM WAITING COMPLETION OF INPATIENT REHAB PRESCREENING AND ADMISSION DETERMINATION FROM [facility]. Core Setter: Zak Gaming DCPIA - Discharge Planning Initial Assessment Updated by [id number]: Zak Gaming on 02/18/18 5:25 pm * Is the patient Alert and Oriented? Yes * How many steps to enter\exit or inside your home? NONE * PCP DR. ROBISON * Pharmacy [facility]. * Preadmission Environment Home with Family * ADLs Partial Dependent * Partial ADLs (Assistance needed) Bathing Medication Management * Equipment Cane Walker Wheelchair * Other Equipment NO MEDICAL EQUIPMENT PROVIDER PREFERENCE * List name and contact numbers for known caregivers / representatives who currently or will assist patient after discharge: DENYS PAULINO, SPOUSE, * Verbal permission to speak to the caregivers and representatives has been obtained from the patient. Yes * Community resources currently utilized None * Please name any agencies selected above. NONE * Additional services required to return to the preadmission environment? Yes * Can the patient safely return to the preadmission environment? Yes * Has this patient been hospitalized within the prior 30 days at any hospital? No Coverage Notice Reviewer: [email or web address] Gaming Notice Issued Date-Time: 02/18/2018 12:10 Notice Type: IM Discharge Notice Notice Delivered To: Family Member Relationship to Patient: Spouse Manager Solution Name: DENYS PAULINO Delivery Method: HAND - Hand Delivered Berenice Days: Prior Verbal Notification: Recipient Understood Notice: Yes Recipient Signature: Yes Med Rec Note Co-signed by Attending: Coverage Notice Comment: Reviewer: [email or web address] Gaming Notice Issued Date-Time: 02/22/2018 9:10 Notice Type: IM Discharge Notice Notice Delivered To: Patient Relationship to Patient: Manager Solution Name: Delivery Method: HAND - Hand Delivered Berenice Days: Prior Verbal Notification: Recipient Understood Notice: Yes Recipient Signature: Yes Med Rec Note Co-signed by Attending: Coverage Notice Comment: Last DP export: 02/22/18 4:42 Patient Name: YA PAULINO Page [id number] at 1759 All edits/amendments must be made on the electronic document DICTATION DATE: 02/22/181758 CONE RUNNER: SAUMYA 02/22/181758 RPT#: [id number] DC DATE: STATUS: ADM IN [facility] [address] [place] [address] END OF REPORT
--- NOTE | ~2018-02-15 | MORECARE ---
CASE MANAGEMENT DISCHARGE SUMMARY PATIENT: YA PAULINO UNIT: [id number] ADM DATE: 02/15/18 AGE: 77 : 38 SEX: M ROOM/BED: D.2132 AUTHOR: JESSE RAMOS PHYSICIAN: REFERRING PHYSICIAN: ALBA ROBISON MD DATE OF SERVICE: 02/24/18 Discharge Plan Patient Name: YA PAULINO Facility: [facility]:[place] : 1940 Planned Disposition: Hospice Medical Facility Anticipated Discharge Date: 02/23/18 Discharge Date: Expected LOS: 8 Initial Reviewer: [id number] Initial Review Date: 02/18/2018 Generated: 02/24/18 9:47 am Comments DCP- Discharge Planning Updated by [id number]: Zak Gaming on 02/24/18 7:[address] Patient Name: YA PAULINO Encounter No: [id number] : 1940 Primary Insurance: MEDICARE A & B Anticipated DC Date: 02-23-2018 Planned Disposition: Hospice Medical Facility External Planned Provider: [facility] DCP follow-up note: CM RECEIVED CALL FROM TANIA OF [facility], , WHO INFORMED CM THAT THEY DID NOT EVALUATE PT LAST NIGHT. CM CLARIFIED THAT PT WILL NEED INPATIENT HOSPICE. CM VERFIED THAT PT'S SON IS IN THE ROOM AND PT'S SPOUSE IS NOT YET HERE BUT CAN BE AND ADVISED TANIA TO CONTACT PT'S SPOUSE VIA PHONE IF NEEDED. CM NOTIFIED TANIA OF PT'S CONTINUED DECLINE. CM FAXED HOSPICE REFERRAL UPDATE TO [facility] AT [phone]. CM WAITING EVALUATION COMPLETION AND ADMISSION DETERMINATION FROM [facility]. Zak Gaming CASE ELIZABETH DCP- Discharge Planning Updated by [id number]: Zak Gaming on 02/23/18 3:[address] Patient Name: YA PAULINO Encounter No: [id number] : 1940 Primary Insurance: MEDICARE A & B Anticipated DC Date: 02-23-2018 Planned Disposition: Hospice Medical [facility] External Planned Provider: [facility] DCP follow-up note: CM SPOKE TO BEDSIDE NURSE WHO INFORMED CM OF PT'S DECLINE IN STATUS, DR. WALLACE HAS ORDERED CONSULT FOR HOSPICE, BEDSIDE NURSE HAS DISCUSSED WITH PT'S SPOUSE WHO IS IN AGREEMENT WITH REFERRAL TO [facility]. CM CALLED [facility], , SPOKE TO SUSAN AND PROVIDED REFERRAL FOR HOSPICE [facility]. CM FAXED HOSPICE REFERRAL TO [facility] AT [phone]. CM WAITING EVALUATION COMPLETION AND ADMISSION DETERMINATION FROM [facility]. JOANN Leal DCP- Discharge Planning Updated by [id number]: Zak Gaming on 02/23/18 12:[address] Patient Name: YA PAULINO Encounter No: [id number] : 1940 Primary Insurance: MEDICARE A & B Anticipated DC Date: 02-23-2018 Planned Disposition: Fdc Facility External Planned Provider: [facility], MEDICARE REHAB BED DCP follow-up note: CM RECEIVED CALL FROM DENYS PAULINO WHO REPORTS BEING UNALBE TO COME TO HOSPITAL DUE TO HAVING A PROCEDURE HERSELF YESTERDAY. SHE HAD RECEIVED MESSAGE FROM MILLY, PT'S CAREGIVER, REGARDING REHAB. OPTIONS DISCUSSED. SPOUSE REPORTS THAT IF PT IS ABLE TO GO REHAB, SHE WOULD LIKE REFERRAL SENT TO THE [facility]. CHOICE COMPLETED. SPOUSE STATES THAT IF PT IS NOT ABLE AND THE DOCTOR FEELS THEY CAN DO NOTHING FURTHER, SHE WOULD WANT [facility] AND IF PT DID NOT QUALIFY FOR INPATIENT HOSPICE, SHE WOULD LIKE PT PLACED AT THE [facility] WITH [facility]. SPOUSE ASKED IF THE DOCTORS HAVE MENTIONED HOSPICE CARE. CM REVIEWED NOTES AND ORDERS, CM ADVISED THEY HAVE NOT BUT ADVISED PT IS DOING WORSE TODAY. SPOUSE ASKED TO BE KEPT UPDATED ON PT'S CONDITION AND ASKED THAT CM CONTACT THE [facility] FOR POSSIBLE REHAB IN EVENT PT DOES GET BETTER. CM NOTIFIED COOPER OF REFERRAL AT [phone]; RN [facility] FAXED REFERRAL TO THE [facility] VIA COOPER AT [phone]. COOPER ARRIVED, EVALUATED PT AND INFORMED CM THAT PT IS ON 15 LITERS OF OXYGEN AND WOULD HAVE TO BE DOING "MUCH BETTER THAN THAT" FOR REHAB. THE [facility] TO FOLLOW FOR POSSIBLE IMPROVEMENT AND REHAB NEEDS, CM TO KEEP INFORMED OF STATUS. SPOUSE, DENYSRYAN PAULINO, ASKED TO BE UPDATED ON PT'S CONDITION, HER PHONE IS [phone]. Zak [place], CASE MANAGEMENT DCP- Discharge Planning Updated by [email or web address]: Zak Gaming on 02/22/18 4:[address] Patient Name: YA PAULINO Encounter No: [id number] : 1940 Primary Insurance: MEDICARE A & B Anticipated DC Date: 02-23-2018 Planned Disposition: Fdc Facility External Planned Provider: :[facility], MEDICARE REHAB BED DCP follow-up note: CM SPOKE TO [facility] OF INPATIENT REHAB ON 02-21-18, THEY ARE NOT ACCEPTING PT HE IS TOO LOW FUNCTIONING. CM MET WITH PT IN ROOM TO DISCUSS DISCHARGE PLANNING AND NEEDS. PT STATES HE KNOWS HE NEEDS SOMETHING AND WOULD LIKE FOR HIS TO DECIDE ON REHAB. IMPORTANT MESSAGE FROM MEDICARE PROVIDED AND EXPLAINED. AFTER LUNCH, CM OBSERVED A PERSON IN THE ROOM WITH PT, CM SPOKE PT WHO INFORMED CM THAT MILLY IS HIS CAREGIVER. CM SPOKE TO ALTA WHO REPORT PT NEEDS REHAB BEFORE COMING HOME AND SHE IS PRAYING THAT PT'S SPOUSE WILL NOT BRING PT HOME IN THIS CONDITION AND WILL CONSENT TO REHAB AT [facility], WHICH IS CLOSE TO PT'S HOME. CM LEFT CHOICE LETTER FOR [facility] IN ROOM WITH PT AFTER EXPLAINING IT TO PT AND CAREGIVER. CM LEFT CM CONTACT INFORMATION. CAREGIVER REPORTS HER NAME IS MILLY AND THAT PT'S IS NOT AVAILABLE TODAY SHE IS HAVING COSMETIC SURGERY AND WILL MOST LIKELY CONTACT CM TOMORROW, 02-23-18. CM WAITING PT'S SPOUSE TO CONTACT CM TO DISCUSS [facility] AND PROVIDE CHOICE OF FACILITY IF SHE WANTS REHAB FOR PT. JOANN Leal DCP- Discharge Planning Updated by [id number]: Zak Gaming on 02/18/18 4:[address] Patient Name: YA PAULINO Admission Status: ER Accout number: [id number] Admission Date: 02-15-2018 : 1940 Admission Diagnosis:LOBAR PNEUMONIA, UNSPECIFIED ORGANISM Attending: ALBA ROBISON Current LOS: 3 Anticipated DC Date: 02-19-2018 Planned Disposition: Inpatient Rehab Primary Insurance: MEDICARE A & B PLANNED EXTERNAL PROVIDER: [facility] Discharge Planning Comments: CM RECEIVED ORDER FOR INPATIENT REHAB PRESCREENING. CM MET WITH PT AND SPOUSE IN ROOM TO DISCUSS DISCHARGE PLANNING AND NEEDS. YA PAULINO provided verbal consent to discuss current and ongoing needs with/in the presence of: SPOUSE, DENYS. PT REPORTS LIVING AT HOME DEPENDENT ON SPOUSE FOR ASSISTANCE IN MEDICATION AND BATH. PT HAS CANE, WALKER AND WHEELCHAIR WITH NO MEDICAL EQUIPMENT PROVIDER PREFERENCE. PT HAS NO OUTSIDE SERVICES ASSISTING IN THE HOME BUT HAS USED [facility] AT HOME IN THE PAST. CM DISCUSSED AVAILABILITY OF HOME HEALTH, REHAB SERVICES AND MEDICAL EQUIPMENT. PT WOULD LIKE REHAB AT [place], SPOUSE TO TRANSPORT HOME AT DISCHARGE. IMPORTANT MESSAGE FROM MEDICARE PROVIDED AND EXPLAINED. CM WAITING COMPLETION OF INPATIENT REHAB PRESCREENING AND ADMISSION DETERMINATION FROM [facility] IN[facility] RE[facility]. Relocation Counselor: Zak Gaming DCPIA - Discharge Planning Initial Assessment Updated by [id number]: Zak Gaming on 02/18/18 5:25 pm * Is the patient Alert and Oriented? Yes * How many steps to enter\\exit or inside your home? NONE * PCP DR. ROBISON * Pharmacy [facility]. * Preadmission Environment Home with Family * ADLs Partial Dependent * Partial ADLs (Assistance needed) Bathing Medication Management * Equipment Cane Walker Wheelchair * Other Equipment NO MEDICAL EQUIPMENT PROVIDER PREFERENCE * List name and contact numbers for known caregivers / representatives who currently or will assist patient after discharge: DENYS PAULINO, SPOUSE, * Verbal permission to speak to the caregivers and representatives has been obtained from the patient. Yes * Community resources currently utilized None * Please name any agencies selected above. NONE * Additional services required to return to the preadmission environment? Yes * Can the patient safely return to the preadmission environment? Yes * Has this patient been hospitalized within the prior 30 days at any hospital? No Coverage Notice Reviewer: [id number] Gaming Notice Issued Date-Time: 02/18/2018 12:10 Notice Type: IM Discharge Notice Notice Delivered To: Family Member Relationship to Patient: Spouse Boat Patcher Plastic Name: DENYS PAULINO Delivery Method: HAND - Hand Delivered Berenice Days: Prior Verbal Notification: Recipient Understood Notice: Yes Recipient Signature: Yes Med Rec Note Co-signed by Attending: Coverage Notice Comment: Reviewer: [email or web address] Gaming Notice Issued Date-Time: 02/22/2018 9:10 Notice Type: IM Discharge Notice Notice Delivered To: Patient Relationship to Patient: Boat Patcher Plastic Name: Delivery Method: HAND - Hand Delivered Berenice Days: Prior Verbal Notification: Recipient Understood Notice: Yes Recipient Signature: Yes Med Rec Note Co-signed by Attending: Coverage Notice Comment: Reviewer: [id number] - Zak Gaming Notice Issued Date-Time: 02/23/2018 9:20 Notice Type: Patient Choice Letter Notice Delivered To: Family Member Relationship to Patient: Spouse Boat Patcher Plastic Name: DENYS PAULINO Delivery Method: PHONE - Phone Berenice Days: Prior Verbal Notification: Recipient Understood Notice: Yes Recipient Signature: Med Rec Note Co-signed by Attending: Coverage Notice Comment: THE JENNI Riggins DP export: 02/23/18 3:51 Patient Name: YA PAULINO Page 35168 at 0847 All edits/amendments must be made on the electronic document DICTATION DATE: 02/24/18845 TRIMMING CUTTER: SAUMYA 02/24/18845 RPT#: [id number] DC DATE: STATUS: ADM IN [facility] [address] [place] [address] END OF REPORT
--- NOTE | ~2018-02-15 | MORECARE ---
CASE MANAGEMENT DISCHARGE SUMMARY PATIENT: YA PAULINO UNIT: [id number] ADM DATE: 02/15/18 AGE: 77 : 38 SEX: M ROOM/BED: D.2132 AUTHOR: JESSE RAMOS PHYSICIAN: REFERRING PHYSICIAN: ALBA ROBISON MD DATE OF SERVICE: 02/23/18 Discharge Plan Patient Name: YA PAULINO Facility: [facility]:[place] : 1940 Planned Disposition: Hospice Medical Facility Anticipated Discharge Date: 02/23/18 Discharge Date: Expected LOS: 8 Initial Reviewer: [id number] Initial Review Date: 02/18/2018 Generated: 02/23/18 5:51 pm Comments DCP- Discharge Planning Updated by [email or web address]: Zak Gaming on 02/23/18 3:[address] Patient Name: YA PAULINO Encounter No: [id number] : 1940 Primary Insurance: MEDICARE A & B Anticipated DC Date: 02-23-2018 Planned Disposition: Hospice Medical Facility External Planned Provider: [facility] DCP follow-up note: CM SPOKE TO BEDSIDE NURSE WHO INFORMED CM OF PT'S DECLINE IN STATUS, DR. WALLACE HAS ORDERED CONSULT FOR HOSPICE, BEDSIDE NURSE HAS DISCUSSED WITH PT'S SPOUSE WHO IS IN AGREEMENT WITH REFERRAL TO [facility]. CM CALLED [facility], , SPOKE TO SUSAN AND PROVIDED REFERRAL FOR HOSPICE EVAL[facility]AT[facility]. CM FAXED HOSPICE REFERRAL TO [facility] AT [phone]. CM WAITING EVALUATION COMPLETION AND ADMISSION DETERMINATION FROM [facility]. JOANN Leal MANAGEMENT DCP- Discharge Planning Updated by [email or web address]: Zak Gaming on 02/23/18 12:[address] Patient Name: YA PAULINO Encounter No: [id number] : 1940 Primary Insurance: MEDICARE A & B Anticipated DC Date: 02-23-2018 Planned Disposition: Senior Living Facility External Planned Provider: [facility], MEDICARE REHAB BED DCP follow-up note: CM RECEIVED CALL FROM DENYS PAULINO WHO REPORTS BEING UNALBE TO COME TO HOSPITAL DUE TO HAVING A PROCEDURE HERSELF YESTERDAY. SHE HAD RECEIVED MESSAGE FROM MILLY, PT'S CAREGIVER, REGARDING REHAB. OPTIONS DISCUSSED. SPOUSE REPORTS THAT IF PT IS ABLE TO GO REHAB, SHE WOULD LIKE REFERRAL SENT TO THE [facility]. CHOICE COMPLETED. SPOUSE STATES THAT IF PT IS NOT ABLE AND THE DOCTOR FEELS THEY CAN DO NOTHING FURTHER, SHE WOULD WANT [facility] AND IF PT DID NOT QUALIFY FOR INPATIENT HOSPICE, SHE WOULD LIKE PT PLACED AT THE [facility] WITH [facility]. SPOUSE ASKED IF THE DOCTORS HAVE MENTIONED HOSPICE CARE. CM REVIEWED NOTES AND ORDERS, CM ADVISED THEY HAVE NOT BUT ADVISED PT IS DOING WORSE TODAY. SPOUSE ASKED TO BE KEPT UPDATED ON PT'S CONDITION AND ASKED THAT CM CONTACT THE [facility] FOR POSSIBLE REHAB IN EVENT PT DOES GET BETTER. SANJEEV NOTIFIED COOPER OF REFERRAL AT [phone]; [facility] FAXED REFERRAL TO THE [facility] VIA COOPER AT [phone]. COOPER ARRIVED, EVALUATED PT AND INFORMED CM THAT PT IS ON 15 LITERS OF OXYGEN AND WOULD HAVE TO BE DOING "MUCH BETTER THAN THAT" FOR REHAB. THE [facility] TO FOLLOW FOR POSSIBLE IMPROVEMENT AND REHAB NEEDS, CM TO KEEP INFORMED OF STATUS. SPOUSE, DENYS PAULINO, ASKED TO BE UPDATED ON PT'S CONDITION, HER PHONE IS [phone]. Zak Gaming, CASE MANAGEMENT DCP- Discharge Planning Updated by [id number]: Zak Gaming on 02/22/18 4:[address] Patient Name: YA PAULINO Encounter No: [id number] : 1940 Primary Insurance: MEDICARE A & B Anticipated DC Date: 02-23-2018 Planned Disposition: Senior Living Facility External Planned Provider: :[facility], MEDICARE REHAB BED DCP follow-up note: CM SPOKE TO [facility] OF INPATIENT REHAB ON 02-21-18, THEY ARE NOT ACCEPTING PT HE IS TOO LOW FUNCTIONING. CM MET WITH PT IN ROOM TO DISCUSS DISCHARGE PLANNING AND NEEDS. PT STATES HE KNOWS HE NEEDS SOMETHING AND WOULD LIKE FOR HIS TO DECIDE ON REHAB. IMPORTANT MESSAGE FROM MEDICARE PROVIDED AND EXPLAINED. AFTER LUNCH, CM OBSERVED A PERSON IN THE ROOM WITH PT, CM SPOKE PT WHO INFORMED CM THAT MILLY IS HIS CAREGIVER. CM SPOKE TO ALTA WHO REPORT PT NEEDS REHAB BEFORE COMING HOME AND SHE IS PRAYING THAT PT'S SPOUSE WILL NOT BRING PT HOME IN THIS CONDITION AND WILL CONSENT TO REHAB AT [facility], WHICH IS CLOSE TO PT'S HOME. CM LEFT CHOICE LETTER FOR [facility] FACILITY IN ROOM WITH PT AFTER EXPLAINING IT TO PT AND CAREGIVER. CM LEFT CM CONTACT INFORMATION. CAREGIVER REPORTS HER NAME IS MILLY AND THAT PT'S IS NOT AVAILABLE TODAY SHE IS HAVING COSMETIC SURGERY AND WILL MOST LIKELY CONTACT CM TOMORROW, 02-23-18. CM WAITING PT'S SPOUSE TO CONTACT CM TO DISCUSS [facility] RE[facility] AND PROVIDE CHOICE OF FACILITY IF SHE WANTS REHAB FOR PT. Zak Gaming, CASE MANAGEMENT DCP- Discharge Planning Updated by [id number]: Zak Gaming on 02/18/18 4:[address] Patient Name: YA PAULINO Admission Status: ER Accout number: [id number] Admission Date: 02-15-2018 : 1940 Admission Diagnosis:LOBAR PNEUMONIA, UNSPECIFIED ORGANISM Attending: ALBA ROBISON Current LOS: 3 Anticipated DC Date: 02-19-2018 Planned Disposition: Inpatient Rehab Primary Insurance: MEDICARE A & B PLANNED EXTERNAL PROVIDER: [facility] INPATIENT REHAB Discharge Planning Comments: CM RECEIVED ORDER FOR INPATIENT REHAB PRESCREENING. CM MET WITH PT AND SPOUSE IN ROOM TO DISCUSS DISCHARGE PLANNING AND NEEDS. YA PAULINO provided verbal consent to discuss current and ongoing needs with/in the presence of: SPOUSE, DENYS. PT REPORTS LIVING AT HOME DEPENDENT ON SPOUSE FOR ASSISTANCE IN MEDICATION AND BATH. PT HAS CANE, WALKER AND WHEELCHAIR WITH NO MEDICAL EQUIPMENT PROVIDER PREFERENCE. PT HAS NO OUTSIDE SERVICES ASSISTING IN THE HOME BUT HAS USED [facility] HOME IN THE PAST. CM DISCUSSED AVAILABILITY OF HOME HEALTH, REHAB SERVICES AND MEDICAL EQUIPMENT. PT WOULD LIKE REHAB AT [place], SPOUSE TO TRANSPORT HOME AT DISCHARGE. IMPORTANT MESSAGE FROM MEDICARE PROVIDED AND EXPLAINED. CM WAITING COMPLETION OF INPATIENT REHAB PRESCREENING AND ADMISSION DETERMINATION FROM [facility] INPAT[facility]. Master Certified Rv Technician: Zak Gaming DCPIA - Discharge Planning Initial Assessment Updated by [id number]: Zak Gaming on 02/18/18 5:25 pm * Is the patient Alert and Oriented? Yes * How many steps to enter\\exit or inside your home? NONE * PCP DR. ROBISON * Pharmacy [facility] ON [facility]. * Preadmission Environment Home with Family * ADLs Partial Dependent * Partial ADLs (Assistance needed) Bathing Medication Management * Equipment Cane Walker Wheelchair * Other Equipment NO MEDICAL EQUIPMENT PROVIDER PREFERENCE * List name and contact numbers for known caregivers / representatives who currently or will assist patient after discharge: DENYS PAULINO, SPOUSE, * Verbal permission to speak to the caregivers and representatives has been obtained from the patient. Yes * Community resources currently utilized None * Please name any agencies selected above. NONE * Additional services required to return to the preadmission environment? Yes * Can the patient safely return to the preadmission environment? Yes * Has this patient been hospitalized within the prior 30 days at any hospital? No Coverage Notice Reviewer: AMY Gaming Notice Issued Date-Time: 02/18/2018 12:10 Notice Type: IM Discharge Notice Notice Delivered To: Family Member Relationship to Patient: Spouse Building Equipment Inspector Name: DENYS PAULINO Delivery Method: HAND - Hand Delivered Berenice Days: Prior Verbal Notification: Recipient Understood Notice: Yes Recipient Signature: Yes Med Rec Note Co-signed by Attending: Coverage Notice Comment: Reviewer: AMY Gaming Notice Issued Date-Time: 02/22/2018 9:10 Notice Type: IM Discharge Notice Notice Delivered To: Patient Relationship to Patient: Building Equipment Inspector Name: Delivery Method: HAND - Hand Delivered Berenice Days: Prior Verbal Notification: Recipient Understood Notice: Yes Recipient Signature: Yes Med Rec Note Co-signed by Attending: Coverage Notice Comment: Reviewer: AMY Gaming Notice Issued Date-Time: 02/23/2018 9:20 Notice Type: Patient Choice Letter Notice Delivered To: Family Member Relationship to Patient: Spouse Building Equipment Inspector Name: DENYS PAULINO Delivery Method: PHONE - Phone Berenice Days: Prior Verbal Notification: Recipient Understood Notice: Yes Recipient Signature: Med Rec Note Co-signed by Attending: Coverage Notice Comment: MARTINEZ Riggins DP export: 02/23/18 3:14 Patient Name: YA PAULINO Page 45246 at 1651 All edits/amendments must be made on the electronic document DICTATION DATE: 02/23/181650 FILM AND VIDEO EDITOR: SAUMYA 02/23/181650 RPT#: [id number] [place] DATE: STATUS: ADM IN [facility] [address] [place] [address] END OF REPORT
--- NOTE | ~2018-02-15 | MORECARE ---
CASE MANAGEMENT DISCHARGE SUMMARY PATIENT: YA PAULINO UNIT: [id number] ADM DATE: 02/15/18 AGE: 77 : 38 SEX: M ROOM/BED: D.2132 AUTHOR: RACHEL,DOC PHYSICIAN: REFERRING PHYSICIAN: ALBA ROBISON MD DATE OF SERVICE: 02/23/18 Discharge Plan Patient Name: YA PAULINO Facility: [facility]:[place] : 1940 Planned Disposition: Senior Living Facility Anticipated Discharge Date: 02/23/18 Discharge Date: Expected LOS: 8 Initial Reviewer: [email or web address] Initial Review Date: 02/18/2018 Generated: 02/23/18 2:14 pm Comments DCP- Discharge Planning Updated by [email or web address]: Zak Gaming on 02/22/18 4:[address] Patient Name: YA PAULINO Encounter No: [id number] : 1940 Primary Insurance: MEDICARE A & B Anticipated DC Date: 02-23-2018 Planned Disposition: Senior Living Facility External Planned Provider: :[facility], MEDICARE REHAB BED DCP follow-up note: CM SPOKE TO HAR[facility] OF INPATIENT REHAB ON 02-21-18, THEY ARE NOT ACCEPTING PT HE IS TOO LOW FUNCTIONING. CM MET WITH PT IN ROOM TO DISCUSS DISCHARGE PLANNING AND NEEDS. PT STATES HE KNOWS HE NEEDS SOMETHING AND WOULD LIKE FOR HIS TO DECIDE ON REHAB. IMPORTANT MESSAGE FROM MEDICARE PROVIDED AND EXPLAINED. AFTER LUNCH, SANJEEV OBSERVED A PERSON IN THE ROOM WITH PT, CM SPOKE PT WHO INFORMED CM THAT MILLY IS HIS CAREGIVER. CM SPOKE TO ALTA WHO REPORT PT NEEDS REHAB BEFORE COMING HOME AND SHE IS PRAYING THAT PT'S SPOUSE WILL NOT BRING PT HOME IN THIS CONDITION AND WILL CONSENT TO REHAB AT [facility], WHICH IS CLOSE TO PT'S HOME. CM LEFT CHOICE LETTER FOR LONGTERM FACILITY IN ROOM WITH PT AFTER EXPLAINING IT TO PT AND CAREGIVER. CM LEFT CM CONTACT INFORMATION. CAREGIVER REPORTS HER NAME IS MILLY AND THAT PT'S IS NOT AVAILABLE TODAY SHE IS HAVING COSMETIC SURGERY AND WILL MOST LIKELY CONTACT CM TOMORROW, 02-23-18. CM WAITING PT'S SPOUSE TO CONTACT CM TO DISCUSS LONGTERM REHAB AND PROVIDE CHOICE OF FACILITY IF SHE WANTS REHAB FOR PT. Zak Gaming, CASE MANAGEMENT DCP- Discharge Planning Updated by [id number]: Zak Gaming on 02/18/18 4:[address] Patient Name: YA PAULINO Admission Status: ER Accout number: [id number] Admission Date: 02-15-2018 : 1940 Admission Diagnosis:LOBAR PNEUMONIA, UNSPECIFIED ORGANISM Attending: ALBA ROBISON Current LOS: 3 Anticipated DC Date: 02-19-2018 Planned Disposition: Inpatient Rehab Primary Insurance: MEDICARE A & B PLANNED EXTERNAL PROVIDER: INPATIENT REHAB Discharge Planning Comments: CM RECEIVED ORDER FOR INPATIENT REHAB PRESCREENING. CM MET WITH PT AND SPOUSE IN ROOM TO DISCUSS DISCHARGE PLANNING AND NEEDS. YA PAULINO provided verbal consent to discuss current and ongoing needs with/in the presence of: SPOUSE, DENYS. PT REPORTS LIVING AT HOME DEPENDENT ON SPOUSE FOR ASSISTANCE IN MEDICATION AND BATH. PT HAS CANE, WALKER AND WHEELCHAIR WITH NO MEDICAL EQUIPMENT PROVIDER PREFERENCE. PT HAS NO OUTSIDE SERVICES ASSISTING IN THE HOME BUT HAS USED [facility] AT HOME IN THE PAST. CM DISCUSSED AVAILABILITY OF HOME HEALTH, REHAB SERVICES AND MEDICAL EQUIPMENT. PT WOULD LIKE REHAB AT [place], SPOUSE TO TRANSPORT HOME AT DISCHARGE. IMPORTANT MESSAGE FROM MEDICARE PROVIDED AND EXPLAINED. CM WAITING COMPLETION OF INPATIENT REHAB PRESCREENING AND ADMISSION DETERMINATION FROM INPATIENT REHAB. Machine Design Teacher: Zak Gaming DCPIA - Discharge Planning Initial Assessment Updated by [email or web address]: Zak Gaming on 02/18/18 5:25 pm * Is the patient Alert and Oriented? Yes * How many steps to enter\exit or inside your home? NONE * PCP DR. ROBISON * Pharmacy [facility]. * Preadmission Environment Home with Family * ADLs Partial Dependent * Partial ADLs (Assistance needed) Bathing Medication Management * Equipment Cane Walker Wheelchair * Other Equipment NO MEDICAL EQUIPMENT PROVIDER PREFERENCE * List name and contact numbers for known caregivers / representatives who currently or will assist patient after discharge: DENYS PAULINO, SPOUSE, * Verbal permission to speak to the caregivers and representatives has been obtained from the patient. Yes * Community resources currently utilized None * Please name any agencies selected above. NONE * Additional services required to return to the preadmission environment? Yes * Can the patient safely return to the preadmission environment? Yes * Has this patient been hospitalized within the prior 30 days at any hospital? No External Providers External Provider: OTHER-OTHER Next Contact Date: Service Request Date: Service Type: Resolution: Reviewer: Comments: Coverage Notice Reviewer: [email or web address] Candi Gaming Notice Issued Date-Time: 02/18/2018 12:10 Notice Type: IM Discharge Notice Notice Delivered To: Family Member Relationship to Patient: Spouse Meeting Specialist Name: DENYS PAULINO Delivery Method: HAND - Hand Delivered Berenice Days: Prior Verbal Notification: Recipient Understood Notice: Yes Recipient Signature: Yes Med Rec Note Co-signed by Attending: Coverage Notice Comment: Reviewer: [id number] Candi Gaming Notice Issued Date-Time: 02/22/2018 9:10 Notice Type: IM Discharge Notice Notice Delivered To: Patient Relationship to Patient: Meeting Specialist Name: Delivery Method: HAND - Hand Delivered Berenice Days: Prior Verbal Notification: Recipient Understood Notice: Yes Recipient Signature: Yes Med Rec Note Co-signed by Attending: Coverage Notice Comment: Last DP export: 02/22/18 4:59 Patient Name: YA PAULINO Page 49435 at 1314 All edits/amendments must be made on the electronic document DICTATION DATE: 02/23/18 1314 PROGRAM CONTROL ANALYST: SAUMYA 02/23/18 1314 RPT#: [id number] [place] DATE: STATUS: ADM IN [address] [place] [address] END OF REPORT
--- NOTE | ~2018-02-15 | MORECARE ---
CASE MANAGEMENT DISCHARGE SUMMARY PATIENT: YA PAULINO UNIT: [id number] ADM DATE: 02/15/18 AGE: 77 : 38 SEX: M ROOM/BED: D.2132 AUTHOR: RACHEL,DOC PHYSICIAN: REFERRING PHYSICIAN: ALBA ROBISON MD DATE OF SERVICE: 02/23/18 Discharge Plan Patient Name: YA PAULINO Facility: [facility]:[place] : 1940 Planned Disposition: Fdc Facility Anticipated Discharge Date: 02/23/18 Discharge Date: Expected LOS: 8 Initial Reviewer: [id number] Initial Review Date: 02/18/2018 Generated: 02/23/18 2:57 pm Comments DCP- Discharge Planning Updated by [id number]: Zak Gaming on 02/23/18 12:[address] Patient Name: YA PAULINO Encounter No: [id number] : 1940 Primary Insurance: MEDICARE A & B Anticipated DC Date: 02-23-2018 Planned Disposition: Fdc Facility External Planned Provider: [facility], MEDICARE REHAB BED DCP follow-up note: CM RECEIVED CALL FROM DENYS JEFFERSON WHO REPORTS BEING UNALBE TO COME TO HOSPITAL DUE TO HAVING A PROCEDURE HERSELF YESTERDAY. SHE HAD RECEIVED MESSAGE FROM MILLY, PT'S CAREGIVER, REGARDING REHAB. OPTIONS DISCUSSED. SPOUSE REPORTS THAT IF PT IS ABLE TO GO REHAB, SHE WOULD LIKE REFERRAL SENT TO [facility]. CHOICE COMPLETED. SPOUSE STATES THAT IF PT IS NOT ABLE AND THE DOCTOR FEELS THEY CAN DO NOTHING FURTHER, SHE WOULD WANT [facility] AND IF PT DID NOT QUALIFY FOR INPATIENT HOSPICE, SHE WOULD LIKE PT PLACED AT [facility] WITH [facility]. SPOUSE ASKED IF THE DOCTORS HAVE MENTIONED HOSPICE CARE. CM REVIEWED NOTES AND ORDERS, CM ADVISED THEY HAVE NOT BUT ADVISED PT IS DOING WORSE TODAY. SPOUSE ASKED TO BE KEPT UPDATED ON PT'S CONDITION AND ASKED THAT CM CONTACT [facility] FOR POSSIBLE REHAB IN EVENT PT DOES GET BETTER. CM NOTIFIED [facility] OF REFERRAL AT [phone]; [facility] FAXED REFERRAL TO [facility] VIA [facility] AT [phone]. [facility] ARRIVED, EVALUATED PT AND INFORMED CM THAT PT IS ON 15 LITERS OF OXYGEN AND WOULD HAVE TO BE DOING "MUCH BETTER THAN THAT" FOR REHAB. [facility] TO FOLLOW FOR POSSIBLE IMPROVEMENT AND REHAB NEEDS, CM TO KEEP INFORMED OF STATUS. SPOUSE, DENYS PAULINO, ASKED TO BE UPDATED ON PT'S CONDITION, HER PHONE IS [phone]. JOANN Leal MANAGEMENT DCP- Discharge Planning Updated by [email or web address]: Zak Gaming on 02/22/18 4:[address] Patient Name: YA PAULINO Encounter No: [id number] : 1940 Primary Insurance: MEDICARE A & B Anticipated DC Date: 02-23-2018 Planned Disposition: Fdc Facility External Planned Provider: :[facility], MEDICARE REHAB BED DCP follow-up note: CM SPOKE TO [facility] OF INPATIENT REHAB ON 02-21-18, THEY ARE NOT ACCEPTING PT HE IS TOO LOW FUNCTIONING. CM MET WITH PT IN ROOM TO DISCUSS DISCHARGE PLANNING AND NEEDS. PT STATES HE KNOWS HE NEEDS SOMETHING AND WOULD LIKE FOR HIS TO DECIDE ON REHAB. IMPORTANT MESSAGE FROM MEDICARE PROVIDED AND EXPLAINED. AFTER LUNCH, CM OBSERVED A PERSON IN THE ROOM WITH PT, CM SPOKE PT WHO INFORMED CM THAT MILLY IS HIS CAREGIVER. CM SPOKE TO ALTA WHO REPORT PT NEEDS REHAB BEFORE COMING HOME AND SHE IS PRAYING THAT PT'S SPOUSE WILL NOT BRING PT HOME IN THIS CONDITION AND WILL CONSENT TO REHAB AT [facility], WHICH IS CLOSE TO PT'S HOME. CM LEFT CHOICE LETTER FOR [facility] IN ROOM WITH PT AFTER EXPLAINING IT TO PT AND CAREGIVER. CM LEFT CM CONTACT INFORMATION. CAREGIVER REPORTS HER NAME IS MILLY AND THAT PT'S IS NOT AVAILABLE TODAY SHE IS HAVING COSMETIC SURGERY AND WILL MOST LIKELY CONTACT CM TOMORROW, 02-23-18. CM WAITING PT'S SPOUSE TO CONTACT CM TO DISCUSS [facility] AND PROVIDE CHOICE OF FACILITY IF SHE WANTS REHAB FOR PT. JOANN Leal MANAGEMENT DCP- Discharge Planning Updated by [id number]: Zak Gaming on 02/18/18 4:[address] Patient Name: YA PAULINO Admission Status: ER Accout number: [id number] Admission Date: 02-15-2018 : 1940 Admission Diagnosis:LOBAR PNEUMONIA, UNSPECIFIED ORGANISM Attending: ALBA ROBISON Current LOS: 3 Anticipated DC Date: 02-19-2018 Planned Disposition: Inpatient Rehab Primary Insurance: MEDICARE A & B PLANNED EXTERNAL PROVIDER: [facility] Discharge Planning Comments: CM RECEIVED ORDER FOR INPATIENT REHAB PRESCREENING. CM MET WITH PT AND SPOUSE IN ROOM TO DISCUSS DISCHARGE PLANNING AND NEEDS. YA PAULINO provided verbal consent to discuss current and ongoing needs with/in the presence of: SPOUSE, DENYS. PT REPORTS LIVING AT HOME DEPENDENT ON SPOUSE FOR ASSISTANCE IN MEDICATION AND BATH. PT HAS CANE, WALKER AND WHEELCHAIR WITH NO MEDICAL EQUIPMENT PROVIDER PREFERENCE. PT HAS NO OUTSIDE SERVICES ASSISTING IN THE HOME BUT HAS USED [facility] IN THE PAST. CM DISCUSSED AVAILABILITY OF HOME HEALTH, REHAB SERVICES AND MEDICAL EQUIPMENT. PT WOULD LIKE REHAB AT [place], SPOUSE TO TRANSPORT HOME AT DISCHARGE. IMPORTANT MESSAGE FROM MEDICARE PROVIDED AND EXPLAINED. CM WAITING COMPLETION OF INPATIENT REHAB PRESCREENING AND ADMISSION DETERMINATION FROM [facility]. Produce Runner: Zak Gaming DCPIA - Discharge Planning Initial Assessment Updated by [id number]: Zak Gaming on 02/18/18 5:25 pm * Is the patient Alert and Oriented? Yes * How many steps to enter\\exit or inside your home? NONE * PCP DR. ROBISON * Pharmacy [facility]. * Preadmission Environment Home with Family * ADLs Partial Dependent * Partial ADLs (Assistance needed) Bathing Medication Management * Equipment Cane Walker Wheelchair * Other Equipment NO MEDICAL EQUIPMENT PROVIDER PREFERENCE * List name and contact numbers for known caregivers / representatives who currently or will assist patient after discharge: DENYS PAULINO, SPOUSE, * Verbal permission to speak to the caregivers and representatives has been obtained from the patient. Yes * Community resources currently utilized None * Please name any agencies selected above. NONE * Additional services required to return to the preadmission environment? Yes * Can the patient safely return to the preadmission environment? Yes * Has this patient been hospitalized within the prior 30 days at any hospital? No Coverage Notice Reviewer: [id number] - Zak Gaming Notice Issued Date-Time: 02/18/2018 12:10 Notice Type: IM Discharge Notice Notice Delivered To: Family Member Relationship to Patient: Spouse [employer] Gauger Name: DENYS PAULINO Delivery Method: HAND - Hand Delivered Berenice Days: Prior Verbal Notification: Recipient Understood Notice: Yes Recipient Signature: Yes Med Rec Note Co-signed by Attending: Coverage Notice Comment: Reviewer: [email or web address] Gaming Notice Issued Date-Time: 02/22/2018 9:10 Notice Type: IM Discharge Notice Notice Delivered To: Patient Relationship to Patient: [employer] Gauger Name: Delivery Method: HAND - Hand Delivered Berenice Days: Prior Verbal Notification: Recipient Understood Notice: Yes Recipient Signature: Yes Med Rec Note Co-signed by Attending: Coverage Notice Comment: Reviewer: AMY Gaming Notice Issued Date-Time: 02/23/2018 9:20 Notice Type: Patient Choice Letter Notice Delivered To: Family Member Relationship to Patient: Spouse [employer] Gauger Name: DENYS PAULINO Delivery Method: PHONE - Phone Berenice Days: Prior Verbal Notification: Recipient Understood Notice: Yes Recipient Signature: Med Rec Note Co-signed by Attending: Coverage Notice Comment: MARTINEZ Riggins DP export: 02/23/18 12:49 Patient Name: YA PAULINO Page [phone] at 1357 All edits/amendments must be made on the electronic document DICTATION DATE: 02/23/18 1355 HAULAGE ENGINE OPERATOR: SAUMYA 02/23/18 1357 RPT#: [id number] DC DATE: STATUS: ADM IN [facility] [address] [place] [address] END OF REPORT
[~2018-02-15 14:07] MED LIST changes: +SINEMET; -SINEMET 25-1001 EACH PO
[2018-02-15] MEDS ORDERED: LANOXIN125 MCG PO (14:22)
[2018-02-15] MEDS ORDERED: ENTRESTO 24 MG1 EACH PO (14:23)
[2018-02-15] MEDS ORDERED: FERRIC CARBOXYMALTOSE (14:24)
[2018-02-15] MEDS ORDERED: MEGACE40 MG PO (14:25)
[2018-02-15] MEDS ORDERED: LYRICA50 MG PO (14:25)
[2018-02-15] MEDS ORDERED: MULTAQ400 MG PO (14:26)
[2018-02-15 15:01] LABS: BASOPHILS 0.2 % (0-2); EOSINOPHILS 0.6 % (0-7); HEMATOCRIT 41.6 % (42.0-54.0); HEMOGLOBIN 13.9 g/dL (13.5-17.5); IMMATURE GRANULOCYTES 0.2 % (0-5); LYMPHOCYTES 10.5 % (15-50); MCH 31.2 pg (26.0-34.0); MCHC 33.4 g/dL (31.0-37.0); MCV 93.5 fL (80.0-100.0); MEAN PLATELET VOLUME 11.2 fL (7.4-10.4); MONOCYTES 9.6 % (2-11); NEUTROPHILS 78.9 % (40-80); PLATELET COUNT 245 10x3/uL (130-400); RBC 4.45 10x6/uL (4.20-6.10); RDW 16.5 % (11.5-14.5); WBC 9.9 10x3/uL (4.8-10.8)
[2018-02-15 15:19] LABS: APTT 33.9 SECONDS (22.8-39.4); INR 1.26 (0.85-1.17); PROTIME 15.3 SECONDS (11.6-15.0)
[2018-02-15 15:26] LABS: ALBUMIN 3.4 g/dL (3.4-5.0); ALKALINE PHOSPHATASE 99 U/L (46-116); ALT (SGPT) 10 U/L (10-68); BILIRUBIN - TOTAL 1.35 mg/dL (0.2-1.3); CALC OSMOLALITY 291 mosm/kg (275-300); CALCIUM 8.4 mg/dL (8.5-10.1); CARBON DIOXIDE 26.9 mmol/L (21.0-32.0); CHLORIDE - SERUM 103 mmol/L (98-107); CREATININE - SERUM 1.7 mg/dL (0.6-1.3); POTASSIUM - SERUM 4.4 mmol/L (3.5-5.1); PROTEIN - SERUM 6.6 g/dL (6.4-8.2); SODIUM 139 mmol/L (136-145); UREA NITROGEN 40 mg/dL (7-18); eGFR NON AFRICAN AMERICAN 41 mL/min (90-120)
[2018-02-15 15:28] LABS: GLUCOSE 167 mg/dL (74-106)
[2018-02-15 15:42] LABS: CKMB 0.9 U/L (0.0-3.6); CREATINE KINASE 29 UL (21-232); MAGNESIUM - SERUM 2.3 mg/dL (1.8-2.4); THYROID STIMULATING HORMONE 1.92 uIU/mL (0.36-3.74)
[2018-02-15 15:56] LABS: TROPONIN-I 0.088 ng/mL (0.000-0.060)
[2018-02-15 16:00] VITALS: BP 129/56
[2018-02-15 17:21] LABS: APPEARANCE CLEAR (CLEAR); COLOR YELLOW (YELLOW); NITRITE NEGATIVE (NEGATIVE); PROTEIN 2+ mg/dL (NEGATIVE); SPECIFIC GRAVITY 1.015 (1.005-1.020)
[2018-02-15 17:22] LABS: BILIRUBIN NEGATIVE (NEGATIVE); GLUCOSE NEGATIVE (NEGATIVE); KETONE NEGATIVE (NEGATIVE); RED CELLS - URINE 0-5 /hpf (0-5); WHITE CELLS - URINE NSEEN /hpf (0-5)
[2018-02-15 17:40] LABS: UDS - AMPHET NEGATIVE QUAL (NEGATIVE); UDS - BARB NEGATIVE QUAL (NEGATIVE); UDS - BENZO NEGATIVE QUAL (NEGATIVE); UDS - COCAINE NEGATIVE QUAL (NEGATIVE); UDS - OPIATE POSITIVE QUAL (NEGATIVE); UDS - PCP NEGATIVE QUAL (NEGATIVE); UDS - THC NEGATIVE QUAL (NEGATIVE)
[2018-02-15 17:51] LABS: CKMB 0.7 U/L (0.0-3.6); CREATINE KINASE 37 UL (21-232); TROPONIN-I 0.057 ng/mL (0.000-0.060)
[2018-02-15 18:00] VITALS: BP 133/51
[2018-02-15] MEDS ORDERED: PULMICORT0.5 MG/21 INH (18:57)
[2018-02-15] MEDS ORDERED: XOPENEX 1.1.25 MG/3 UPD (18:57)
[2018-02-15 20:00] VITALS: BP 140/75
[2018-02-15 23:25] VITALS: BP 140/75; BMI 17.0
[2018-02-15 23:55] LABS: CKMB 0.7 U/L (0.0-3.6); CREATINE KINASE 25 UL (21-232)
[2018-02-15 23:57] LABS: TROPONIN-I 0.083 ng/mL (0.000-0.060)
[2018-02-16] VITALS: BP 134/65
[2018-02-16 05:30] VITALS: BP 143/67
[2018-02-16 05:48] LABS: BASOPHILS 0.1 % (0-2); EOSINOPHILS 0.2 % (0-7); HEMATOCRIT 39.7 % (42.0-54.0); HEMOGLOBIN 13.1 g/dL (13.5-17.5); IMMATURE GRANULOCYTES 0.2 % (0-5); LYMPHOCYTES 10.2 % (15-50); MCH 30.4 pg (26.0-34.0); MCV 92.1 fL (80.0-100.0); MEAN PLATELET VOLUME 11.7 fL (7.4-10.4); MONOCYTES 8.5 % (2-11); NEUTROPHILS 80.8 % (40-80); PLATELET COUNT 254 10x3/uL (130-400); RBC 4.31 10x6/uL (4.20-6.10); RDW 16.2 % (11.5-14.5); WBC 9.5 10x3/uL (4.8-10.8)
[2018-02-16 06:42] LABS: ALBUMIN 3.1 g/dL (3.4-5.0); ALKALINE PHOSPHATASE 106 U/L (46-116); CALCIUM 8.1 mg/dL (8.5-10.1); CARBON DIOXIDE 22.5 mmol/L (21.0-32.0); CHLORIDE - SERUM 104 mmol/L (98-107); CKMB 0.7 U/L (0.0-3.6); CREATINE KINASE 30 UL (21-232); CREATININE - SERUM 1.9 mg/dL (0.6-1.3); DIGOXIN 2.74 ng/mL (0.90-2.00); MAGNESIUM - SERUM 2.5 mg/dL (1.8-2.4); POTASSIUM - SERUM 4.3 mmol/L (3.5-5.1); SODIUM 141 mmol/L (136-145); UREA NITROGEN 42 mg/dL (7-18); eGFR NON AFRICAN AMERICAN 36 mL/min (90-120)
[2018-02-16 06:54] LABS: ALT (SGPT) 23 U/L (10-68); CALC OSMOLALITY 292 mosm/kg (275-300); GLUCOSE 115 mg/dL (74-106)
[2018-02-16 06:55] LABS: TROPONIN-I 0.085 ng/mL (0.000-0.060)
[2018-02-16 07:52] VITALS: BP 129/67
[2018-02-16 11:30] VITALS: BP 136/68
[2018-02-16] MEDS ORDERED: MULTAQ400 MG PO (14:30)
[2018-02-16 14:51] VITALS: Ht 180.3 cm; Wt 80.6 kg
[2018-02-16 18:27] LABS: CREATININE - URINE 147.2 mg/dL (30-125); PROTEIN - URINE 117.3 mg/dL (0.0-11.9)
[2018-02-16] MEDS ORDERED: LYRICA25 MG PO (19:37)
[2018-02-16 20:00] VITALS: BP 150/69
[2018-02-17] VITALS: BP 134/73
[2018-02-17 04:00] VITALS: BP 134/54
[2018-02-17 05:14] LABS: BASOPHILS 0.1 % (0-2); EOSINOPHILS 0.1 % (0-7); HEMOGLOBIN 13.8 g/dL (13.5-17.5); IMMATURE GRANULOCYTES 0.3 % (0-5); LYMPHOCYTES 9.1 % (15-50); MCH 30.8 pg (26.0-34.0); MCHC 33.7 g/dL (31.0-37.0); MCV 91.5 fL (80.0-100.0); MEAN PLATELET VOLUME 11.9 fL (7.4-10.4); MONOCYTES 8.7 % (2-11); NEUTROPHILS 81.7 % (40-80); PLATELET COUNT 271 10x3/uL (130-400); RBC 4.48 10x6/uL (4.20-6.10); RDW 16.5 % (11.5-14.5); WBC 10.2 10x3/uL (4.8-10.8)
[2018-02-17 06:01] LABS: ALBUMIN 2.9 g/dL (3.4-5.0); BILIRUBIN - TOTAL 1.36 mg/dL (0.2-1.3); CALCIUM 8.6 mg/dL (8.5-10.1); CARBON DIOXIDE 20.4 mmol/L (21.0-32.0); CREATININE - SERUM 2.2 mg/dL (0.6-1.3); MAGNESIUM - SERUM 2.4 mg/dL (1.8-2.4); POTASSIUM - SERUM 4.4 mmol/L (3.5-5.1); PROTEIN - SERUM 5.9 g/dL (6.4-8.2)
[2018-02-17 06:24] LABS: ERYTHROCYTE SEDIMENTATION RATE 5 mm/hr (0-20)
[2018-02-17 07:53] VITALS: BP 147/63
[2018-02-17 11:41] VITALS: BP 137/62
[2018-02-17 15:02] VITALS: BP 127/55
[2018-02-17 20:00] VITALS: BP 139/57
[2018-02-18] VITALS: BP 133/50
[2018-02-18 04:00] VITALS: BP 121/54
[2018-02-18 06:49] LABS: BASOPHILS 0 % (0-2); EOSINOPHILS 0.2 % (0-7); HEMATOCRIT 38.7 % (42.0-54.0); HEMOGLOBIN 12.9 g/dL (13.5-17.5); IMMATURE GRANULOCYTES 0.3 % (0-5); LYMPHOCYTES 5.9 % (15-50); MCH 30.3 pg (26.0-34.0); MCHC 33.3 g/dL (31.0-37.0); MCV 90.8 fL (80.0-100.0); MEAN PLATELET VOLUME 11.3 fL (7.4-10.4); NEUTROPHILS 88.6 % (40-80); PLATELET COUNT 236 10x3/uL (130-400); RBC 4.26 10x6/uL (4.20-6.10); RDW 16.2 % (11.5-14.5)
[2018-02-18 06:55] LABS: WBC 13.1 10x3/uL (4.8-10.8)
[2018-02-18 07:13] LABS: ALBUMIN 2.7 g/dL (3.4-5.0); BILIRUBIN - TOTAL 1.27 mg/dL (0.2-1.3); CALCIUM 8.1 mg/dL (8.5-10.1); CARBON DIOXIDE 22.8 mmol/L (21.0-32.0); CREATININE - SERUM 2.1 mg/dL (0.6-1.3); MAGNESIUM - SERUM 2.3 mg/dL (1.8-2.4); PROTEIN - SERUM 5.6 g/dL (6.4-8.2)
[2018-02-18 07:15] LABS: ANION GAP 17.9 mmol/L (8-16); POTASSIUM - SERUM 3.7 mmol/L (3.5-5.1)
[2018-02-18 08:34] VITALS: BP 128/66
[2018-02-18 11:28] VITALS: BP 123/65
[2018-02-18 12:14] LABS: ANA REFLEX - DIRECT Negative (Negative)
[2018-02-18 13:16] LABS: SPE - A/G RATIO 1.4 (0.7-1.7); SPE - ALPHA-1 GLOBULIN 0.3 g/dL (0.0-0.4); SPE - ALPHA-2 GLOBULIN 0.5 g/dL (0.4-1.0); SPE - BETA GLOBULIN 0.6 g/dL (0.7-1.3); SPE - GAMMA GLOBULIN 0.6 g/dL (0.4-1.8); SPE - M-SPIKE Not Observed g/dL (Not Observed); SPE - TOTAL PROTEIN 5.1 g/dL (6.0-8.5)
[2018-02-18 16:09] VITALS: BP 116/60
[2018-02-18 20:00] VITALS: BP 130/67
[2018-02-19] VITALS: BP 114/54
[2018-02-19 04:00] VITALS: BP 109/57
[2018-02-19 05:47] LABS: BASOPHILS 0.1 % (0-2); EOSINOPHILS 0.5 % (0-7); HEMATOCRIT 38.2 % (42.0-54.0); HEMOGLOBIN 12.5 g/dL (13.5-17.5); IMMATURE GRANULOCYTES 0.3 % (0-5); LYMPHOCYTES 4.7 % (15-50); MCH 30.2 pg (26.0-34.0); MCHC 32.7 g/dL (31.0-37.0); MCV 92.3 fL (80.0-100.0); MEAN PLATELET VOLUME 12.1 fL (7.4-10.4); MONOCYTES 4.5 % (2-11); NEUTROPHILS 89.9 % (40-80); PLATELET COUNT 233 10x3/uL (130-400); RBC 4.14 10x6/uL (4.20-6.10); RDW 15.9 % (11.5-14.5); WBC 12.7 10x3/uL (4.8-10.8)
[2018-02-19 06:00] LABS: ALBUMIN 2.6 g/dL (3.4-5.0); ANION GAP 16.1 mmol/L (8-16); BILIRUBIN - TOTAL 1.33 mg/dL (0.2-1.3); CALCIUM 8.1 mg/dL (8.5-10.1); CARBON DIOXIDE 23.3 mmol/L (21.0-32.0); CREATININE - SERUM 2.1 mg/dL (0.6-1.3); MAGNESIUM - SERUM 2.3 mg/dL (1.8-2.4); POTASSIUM - SERUM 3.4 mmol/L (3.5-5.1); PROTEIN - SERUM 5.5 g/dL (6.4-8.2)
[2018-02-19 09:02] VITALS: BP 186/55
[2018-02-19 13:32] VITALS: BP 129/80
[2018-02-19 16:49] VITALS: BP 143/67
[2018-02-19 20:30] VITALS: BP 150/54
[2018-02-20 00:30] VITALS: BP 106/54
[2018-02-20 04:30] VITALS: BP 114/55
[2018-02-20 05:31] LABS: BASOPHILS 0.1 % (0-2); EOSINOPHILS 0.4 % (0-7); HEMATOCRIT 35.6 % (42.0-54.0); HEMOGLOBIN 11.7 g/dL (13.5-17.5); IMMATURE GRANULOCYTES 0.4 % (0-5); LYMPHOCYTES 4.5 % (15-50); MCH 30.2 pg (26.0-34.0); MCHC 32.9 g/dL (31.0-37.0); MCV 91.8 fL (80.0-100.0); MONOCYTES 3.9 % (2-11); NEUTROPHILS 90.7 % (40-80); PLATELET COUNT 197 10x3/uL (130-400); RBC 3.88 10x6/uL (4.20-6.10); RDW 15.8 % (11.5-14.5); WBC 10.9 10x3/uL (4.8-10.8)
[2018-02-20 05:48] LABS: ALBUMIN 2.3 g/dL (3.4-5.0); ANION GAP 15.3 mmol/L (8-16); BILIRUBIN - TOTAL 1.22 mg/dL (0.2-1.3); CALCIUM 7.9 mg/dL (8.5-10.1); CARBON DIOXIDE 22.2 mmol/L (21.0-32.0); MAGNESIUM - SERUM 2.4 mg/dL (1.8-2.4); POTASSIUM - SERUM 3.5 mmol/L (3.5-5.1); PROTEIN - SERUM 5.2 g/dL (6.4-8.2)
[2018-02-20 09:32] VITALS: BP 126/58
[2018-02-20 13:17] VITALS: BP 100/54
[2018-02-20 17:22] VITALS: BP 129/47
[2018-02-20 20:30] VITALS: BP 100/61
[2018-02-21 00:30] VITALS: BP 95/48
[2018-02-21 04:30] VITALS: BP 96/40
[2018-02-21 06:07] LABS: BASOPHILS 0.1 % (0-2); EOSINOPHILS 0.9 % (0-7); HEMATOCRIT 36.3 % (42.0-54.0); HEMOGLOBIN 11.7 g/dL (13.5-17.5); IMMATURE GRANULOCYTES 0.3 % (0-5); LYMPHOCYTES 7.1 % (15-50); MCH 30.1 pg (26.0-34.0); MCHC 32.2 g/dL (31.0-37.0); MCV 93.3 fL (80.0-100.0); MONOCYTES 3.7 % (2-11); NEUTROPHILS 87.9 % (40-80); PLATELET COUNT 211 10x3/uL (130-400); RBC 3.89 10x6/uL (4.20-6.10); RDW 16.2 % (11.5-14.5); WBC 10.9 10x3/uL (4.8-10.8)
[2018-02-21 06:34] LABS: ALBUMIN 2.2 g/dL (3.4-5.0); ANION GAP 14.7 mmol/L (8-16); BILIRUBIN - TOTAL 1.12 mg/dL (0.2-1.3); CALCIUM 7.7 mg/dL (8.5-10.1); CARBON DIOXIDE 22.9 mmol/L (21.0-32.0); CREATININE - SERUM 2.1 mg/dL (0.6-1.3); POTASSIUM - SERUM 3.6 mmol/L (3.5-5.1); PROTEIN - SERUM 5.4 g/dL (6.4-8.2)
[2018-02-21 08:24] VITALS: BP 113/56
[2018-02-21 10:59] VITALS: BP 126/73
[2018-02-21 15:55] VITALS: BP 122/68
[2018-02-21 20:00] VITALS: BP 104/57
[2018-02-22] VITALS: BP 103/46
[2018-02-22 04:00] VITALS: BP 92/47
[2018-02-22 05:32] LABS: BASOPHILS 0 % (0-2); EOSINOPHILS 1.2 % (0-7); HEMATOCRIT 34.2 % (42.0-54.0); HEMOGLOBIN 11.2 g/dL (13.5-17.5); IMMATURE GRANULOCYTES 0.2 % (0-5); LYMPHOCYTES 5.7 % (15-50); MCH 29.8 pg (26.0-34.0); MCHC 32.7 g/dL (31.0-37.0); MEAN PLATELET VOLUME 11.5 fL (7.4-10.4); NEUTROPHILS 87.9 % (40-80); PLATELET COUNT 183 10x3/uL (130-400); RBC 3.76 10x6/uL (4.20-6.10); RDW 16.3 % (11.5-14.5); WBC 10.1 10x3/uL (4.8-10.8)
[2018-02-22 05:55] LABS: BILIRUBIN - TOTAL 1.01 mg/dL (0.2-1.3); CALCIUM 8.1 mg/dL (8.5-10.1); CARBON DIOXIDE 20.3 mmol/L (21.0-32.0); CREATININE - SERUM 2.2 mg/dL (0.6-1.3); POTASSIUM - SERUM 3.3 mmol/L (3.5-5.1); PROTEIN - SERUM 5.1 g/dL (6.4-8.2)
[2018-02-22 08:05] VITALS: BP 117/64
[2018-02-22 11:21] VITALS: BP 104/58
[2018-02-22 16:50] VITALS: BP 119/62
[2018-02-22 21:02] VITALS: BP 116/60
[2018-02-23 01:14] VITALS: BP 95/46
[2018-02-23 05:43] LABS: BASOPHILS 0.1 % (0-2); EOSINOPHILS 0.9 % (0-7); HEMATOCRIT 35.7 % (42.0-54.0); HEMOGLOBIN 11.6 g/dL (13.5-17.5); IMMATURE GRANULOCYTES 0.3 % (0-5); LYMPHOCYTES 5.4 % (15-50); MCH 29.6 pg (26.0-34.0); MCHC 32.5 g/dL (31.0-37.0); MCV 91.1 fL (80.0-100.0); MEAN PLATELET VOLUME 12.2 fL (7.4-10.4); NEUTROPHILS 88.3 % (40-80); PLATELET COUNT 198 10x3/uL (130-400); RBC 3.92 10x6/uL (4.20-6.10); RDW 16.5 % (11.5-14.5); WBC 11.5 10x3/uL (4.8-10.8)
[2018-02-23 05:54] VITALS: BP 122/62
[2018-02-23 06:45] LABS: ALBUMIN 2.1 g/dL (3.4-5.0); BILIRUBIN - TOTAL 1.3 mg/dL (0.2-1.3); CALCIUM 8.4 mg/dL (8.5-10.1); CREATININE - SERUM 2.3 mg/dL (0.6-1.3); PROTEIN - SERUM 5.2 g/dL (6.4-8.2)
[2018-02-23 06:46] LABS: ANION GAP 18.9 mmol/L (8-16); POTASSIUM - SERUM 3.9 mmol/L (3.5-5.1)
[2018-02-23 08:44] VITALS: BP 129/66
[2018-02-23 13:07] VITALS: BP 124/60
[2018-02-23 20:00] VITALS: BP 138/63
[2018-02-24] VITALS: BP 109/38
[2018-02-24 04:56] VITALS: BP 117/34
[2018-02-24 05:11] LABS: BASOPHILS 0.1 % (0-2); HEMATOCRIT 37.6 % (42.0-54.0); HEMOGLOBIN 12.3 g/dL (13.5-17.5); IMMATURE GRANULOCYTES 0.5 % (0-5); LYMPHOCYTES 7.9 % (15-50); MCH 29.9 pg (26.0-34.0); MCHC 32.7 g/dL (31.0-37.0); MCV 91.3 fL (80.0-100.0); MEAN PLATELET VOLUME 12.3 fL (7.4-10.4); MONOCYTES 3.2 % (2-11); NEUTROPHILS 87.3 % (40-80); PLATELET COUNT 221 10x3/uL (130-400); RBC 4.12 10x6/uL (4.20-6.10); RDW 16.8 % (11.5-14.5); WBC 13.4 10x3/uL (4.8-10.8)
[2018-02-24 05:33] LABS: ANION GAP 20.1 mmol/L (8-16); BILIRUBIN - TOTAL 1.33 mg/dL (0.2-1.3); CALCIUM 8.5 mg/dL (8.5-10.1); CARBON DIOXIDE 17.8 mmol/L (21.0-32.0); CREATININE - SERUM 2.4 mg/dL (0.6-1.3); POTASSIUM - SERUM 3.9 mmol/L (3.5-5.1); PROTEIN - SERUM 5.1 g/dL (6.4-8.2)
[2018-02-24 08:46] VITALS: BP 115/77
[2018-02-25 16:14] LABS: ANCA - ANTIMYELOPEROXIDASE <9.0 U/mL (0.0-9.0); ANCA - ANTIPROTEINASE 3 <3.5 U/mL (0.0-3.5); ANCA - ATYPICAL <1:20 titer (Neg:<1:20); ANCA - CYTOPLASMIC <1:20 titer (Neg:<1:20); ANCA - PERINUCLEAR <1:20 titer (Neg:<1:20)
== END 2018-02-24 12:21 | DRG 177 ==
LOC: D.ER 14:07 → D.M2 17:26 → D.EDHOLD 17:26 → D.M2 18:26
PROVIDERS: Family Medicine; Family Medicine Adult Medicine; Internal Medicine; Internal Medicine Pulmonary Disease
DX: J69.0 Pneumonitis due to inhalation of food and vomit (principal); I21.A1 Myocardial infarction type 2; E43 Unspecified severe protein-calorie malnutrition; J44.0 Chronic obstructive pulmonary disease with (acute) lower respiratory infection; N17.9 Acute kidney failure, unspecified; J96.11 Chronic respiratory failure with hypoxia; Z68.1 Body mass index [BMI] 19.9 or less, adult; G62.9 Polyneuropathy, unspecified; E86.0 Dehydration; E03.9 Hypothyroidism, unspecified; G47.33 Obstructive sleep apnea (adult) (pediatric); G20 Parkinson's disease; I25.10 Atherosclerotic heart disease of native coronary artery without angina pectoris; I48.0 Paroxysmal atrial fibrillation; Z95.0 Presence of cardiac pacemaker